=== PATIENT | female | born 1965 | race African-American/Black ===

== ENCOUNTER 2016-12-02 10:42 | Emergency (ER) | payer MEDICARE, OTHER ==
[~2016-12-02] VITALS: Ht 162.6 cm; Wt 63.5 kg
--- NOTE | 2016-12-02 11:32 | PHYS DOC ---
Adult General Chief Complaint Chief Complaint: ALTERED MENTAL STATUS [facility] HPI Patient is a 51 year old presents to the emergency department with complaints of right frontal headache and numbness and tingling to the lips for 3 days. Patient states the last tetanus same symptoms occurred she had an INR that was elevated. She states that she has had no evidence of bleeding, no bleeding from the gums when brushing her teeth, no blood in her stool, no blood in her urine. She does not note that she's had excessive bruising. Patient states she has had no chest pain, no abdominal pain, nausea, vomiting. No diarrhea. Reports she is using Coumadin and she has a history of atrial fib. States her main concern today is her potential elevation of INR based on previous symptoms she is experienced with this. Review of Systems Review of Systems Constitutional: Denies fever or chills [] Eyes: Denies change in visual acuity, redness, or eye pain [] HENT: Denies nasal congestion or sore throat [] Respiratory: Denies cough or shortness of breath [] Cardiovascular: No additional information not addressed in HPI [] GI: Denies abdominal pain, nausea, vomiting, bloody stools or diarrhea [] : Denies dysuria or hematuria [] Musculoskeletal: Denies back pain or joint pain [] Integument: Denies rash or skin lesions [] Neurologic: Headache and tingling of lips. Denies focal weakness or sensory changes. Endocrine: Denies polyuria or polydipsia [] Allergies Allergies Allergies Coded Allergies Type Severity Reaction Last Updated Verified prochlorperazine Allergy Intermediate 12/02/16 Yes Physical Exam Physical Exam Constitutional: Well developed, well nourished, no acute distress, non-toxic appearance. [] HENT: Normocephalic, atraumatic, bilateral external ears normal, oropharynx moist, no oral exudates, nose normal. [] Eyes: PERRLA, EOMI, conjunctiva normal, no discharge. [] Neck: Normal range of motion, no tenderness, supple, no stridor. [] Cardiovascular:Heart rate irregular rhythm, no murmur [] Lungs & Thorax: Bilateral breath sounds clear to auscultation [] Abdomen: Bowel sounds normal, soft, no tenderness, no masses, no pulsatile masses. [] Skin: Warm, dry, no erythema, no rash. No bruising [] Back: No tenderness, no CVA tenderness. [] Extremities: No tenderness, no cyanosis, no clubbing, ROM intact, no edema. [] Neurologic: Alert and oriented X 3, normal motor function, normal sensory function, no focal deficits noted. NIH Stroke score = 0 Psychologic: Affect normal, judgement normal, mood normal. [] Current Patient Data Vital Signs Vital Signs Date Time Temp Pulse Resp B/P (MAP) Pulse Ox O2 Delivery O2 Flow Rate FiO2 12/02/16 11:05 98.4 91 18 111/67 (82) 96 Room Air 98.4 Lab Values Laboratory Tests Test 12/02/16 11:34 White Blood Count 3.7 x10^3/uL (4.0-11.0) L Red Blood Count 3.76 x10^6/uL (3.50-5.40) Hemoglobin 12.3 g/dL (12.0-15.5) Hematocrit 35.4 % (36.0-47.0) L Mean Corpuscular Volume 94 fL (79-100) Mean Corpuscular Hemoglobin 33 pg (25-35) Mean Corpuscular Hemoglobin Concent 35 g/dL (31-37) Red Cell Distribution Width 13.0 % (11.5-14.5) Platelet Count 231 x10^3/uL (140-400) Neutrophils (%) (Auto) 52 % (31-73) Lymphocytes (%) (Auto) 30 % (24-48) Monocytes (%) (Auto) 15 % (0-9) H Eosinophils (%) (Auto) 2 % (0-3) Basophils (%) (Auto) 1 % (0-3) Neutrophils # (Auto) 1.9 x10^3uL (1.8-7.7) Lymphocytes # (Auto) 1.1 x10^3/uL (1.0-4.8) Monocytes # (Auto) 0.6 x10^3/uL (0.0-1.1) Eosinophils # (Auto) 0.1 x10^3/uL (0.0-0.7) Basophils # (Auto) 0.0 x10^3/uL (0.0-0.2) Prothrombin Time 25.2 SEC (11.7-14.0) H Prothrombin Time INR 2.5 (0.8-1.1) H PTT 37 SEC (24-38) Sodium Level 138 mmol/L (136-145) Potassium Level 4.0 mmol/L (3.5-5.1) Chloride Level 103 mmol/L (98-107) Carbon Dioxide Level 26 mmol/L (21-32) Anion Gap 9 (6-14) Blood Urea Nitrogen 18 mg/dL (7-20) Creatinine 0.9 mg/dL (0.6-1.0) Estimated GFR (Cockcroft-Gault) 79.3 BUN/Creatinine Ratio 20 (6-20) Glucose Level 96 mg/dL (70-99) Calcium Level 9.4 mg/dL (8.5-10.1) Total Bilirubin 0.3 mg/dL (0.2-1.0) Aspartate Amino Transferase (AST) 23 U/L (15-37) Alanine Aminotransferase (ALT) 35 U/L (14-59) Alkaline Phosphatase 134 U/L (46-116) H Creatine Kinase 90 U/L (26-192) Creatine Kinase MB (Mass) 0.8 ng/mL (0.0-3.6) Creatine Kinase MB Relative Index 0.9 % (0-4) Troponin I Quantitative < 0.017 ng/mL (0.000-0.055) Total Protein 9.0 g/dL (6.4-8.2) H Albumin 4.1 g/dL (3.4-5.0) Albumin/Globulin Ratio 0.8 (1.0-1.7) L Laboratory Tests 12/02/16 11:34 Laboratory Tests 12/02/16 11:34 EKG EKG EKG reviewed by Dr. Marie at 1155, no stemi, junctional rhythm[] Radiology/Procedures Radiology/Procedures [][facility] [address] [place], [place] [id number] IMAGING REPORT Signed PATIENT: FREDERICK NICOLE ACCOUNT: [id number] : 1965 LOCATION: ER AGE: 51 SEX: F EXAM STATUS: REG ER ORD. PHYSICIAN: MURTAZA STAPLES APRN REASON: Headache, Coumadin PROCEDURE: CT HEAD WO CONTRAST CT head without contrast History: Headache, on Coumadin. Comparison: None. Procedure: Axial images are obtained of the head from the skull base through the vertex without IV contrast. Findings: The ventricles and sulci are normal for the patient's age. No mass-effect, intracranial mass, midline shift, hemorrhage or obvious acute infarction is identified. Basilar cisterns are patent. Bone windows demonstrate no significant calvarial abnormality. The visualized paranasal sinuses appear clear. Mild bilateral periventricular white matter hypodensities likely chronic small vessel ischemic disease. Impression: 1. No acute intracranial process. PQRS Compliance Statement: One or more of the following individualized dose reduction techniques were utilized for this examination: 1. Automated exposure control 2. Adjustment of the mA and/or kV according to patient size 3. Use of iterative reconstruction technique faint DICTATED and SIGNED BY: MAGO CRUZ MD DATE: 12/02/16 1149 CC: NON,STAFF; MURTAZA STAPLES APRN; ELISABETH RIVERS MD ~ Course & Med Decision Making Course & Med Decision Making Reevaluation: Patient's NIH stroke score remained 0. She has no complaints at time of reevaluation. I discussed with her the lab results and her CAT scan results. She is comfortable with the findings she states she is comfortable going home. She does have a follow-up appointment in 2 days with her primary care provider. I did encourage her to continue with plans for this appointment. She was advised that should she develop new symptoms or concerns or her condition worsens than she should report to the emergency department. Pertinent Labs and Imaging studies reviewed. (See chart for details) [] Dragon Disclaimer Dragon Disclaimer This electronic medical record was generated, in whole or in part, using a voice recognition dictation system. Departure Departure Impression: Primary Impression: Feared condition not demonstrated Disposition: 01 HOME, SELF-CARE Condition: STABLE Referrals: ELISABETH RIVERS MD (PCP) Additional Instructions: Your INR was 2.5. Please plan to follow-up with your primary care provider as scheduled in 2 days for further evaluation and monitoring of her Coumadin and INR. Return to the emergency Department for new symptoms or concerns or worsening of condition. MURTAZA STAPLES APRN Dec 02, 2016 11:32
[2016-12-02 11:45] LABS: BASO % 1 % (0-3); EOS % 2 % (0-3); HEMATOCRIT 35.4 % (36.0-47.0); HEMOGLOBIN 12.3 g/dL (12.0-15.5); LYMPH # 1.1 x10^3/uL (1.0-4.8); LYMPH % 30 % (24-48); MEAN CORPUSCULAR HEMOGLOBIN 33 pg (25-35); MEAN CORPUSCULAR HGB CONC 35 g/dL (31-37); MEAN CORPUSCULAR VOLUME 94 fL (79-100); MONO % 15 % (0-9); NEUT % 52 % (31-73); PLATELET COUNT 231 x10^3/uL (140-400); RED BLOOD COUNT 3.76 x10^6/uL (3.50-5.40); WHITE BLOOD COUNT 3.7 x10^3/uL (4.0-11.0)
--- NOTE | 2016-12-02 11:54 | RAD ---
CT head without contrast History: Headache, on Coumadin. Comparison: None. Procedure: Axial images are obtained of the head from the skull base through the vertex without IV contrast. Findings: The ventricles and sulci are normal for the patient's age. No mass-effect, intracranial mass, midline shift, hemorrhage or obvious acute infarction is identified. Basilar cisterns are patent. Bone windows demonstrate no significant calvarial abnormality. The visualized paranasal sinuses appear clear. Mild bilateral periventricular white matter hypodensities likely chronic small vessel ischemic disease. Impression: 1. No acute intracranial process. PQRS Compliance Statement: One or more of the following individualized dose reduction techniques were utilized for this examination: 1. Automated exposure control 2. Adjustment of the mA and/or kV according to patient size 3. Use of iterative reconstruction technique faint
[2016-12-02 11:55] LABS: INR 2.5 (0.8-1.1); PROTHROMBIN TIME PATIENT 25.2 SEC (11.7-14.0)
[2016-12-02 11:56] LABS: CALCIUM 9.4 mg/dL (8.5-10.1); CREATININE 0.9 mg/dL (0.6-1.0); GFR 79.3
[2016-12-02 12:01] LABS: ALBUMIN 4.1 g/dL (3.4-5.0); ALBUMIN/GLOBULIN RATIO 0.8 (1.0-1.7); TOTAL BILIRUBIN 0.3 mg/dL (0.2-1.0)
[2016-12-02 12:15] LABS: CKMB MASS 0.8 ng/mL (0.0-3.6)
[2016-12-02 12:38] VITALS: BP 107/62
--- NOTE | 2016-12-02 14:05 | EKG ---
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
== END 2016-12-02 12:40 | disposition home or self-care (01) ==
LOC: ER 10:42
DX: Z71.1 Person with feared health complaint in whom no diagnosis is made (principal); R51 Headache; R20.0 Anesthesia of skin; Z88.8 Allergy status to other drugs, medicaments and biological substances
CPT/HCPCS: 36415; 70450; 80053; 82553; 84484; 85027; 85610; 85730; 93005; 99285-25

== ENCOUNTER 2017-03-04 22:34 | Emergency (ER) | payer MEDICARE, OTHER ==
[~2017-03-04] VITALS: Ht 162.6 cm; Wt 62.6 kg
[2017-03-04 22:48] VITALS: BP 116/67
[2017-03-04] MEDS ORDERED: CONTRAST GIVEN MC PRN (23:15)
[2017-03-04 23:22] LABS: BILIRUBIN,URINE NEGATIVE (NEG); GLUCOSE,URINE NEGATIVE (NEG); NITRITE,URINE NEGATIVE (NEG); PROTEIN,URINE NEGATIVE (NEG-TRACE); UROBILINOGEN,URINE 0.2 mg/dL (0.2 mg/dL)
[2017-03-04 23:27] LABS: BACTERIA,URINE MODERATE /HPF (0-FEW); RBC,URINE OCC /HPF (0-2)
[2017-03-04 23:28] LABS: SQUAMOUS EPITHELIAL CELL,UR MOD /LPF
[2017-03-04] MEDS ORDERED: IOHEXOL 300 MG/ML 75 ML VIAL IV ONE (23:30)
[2017-03-04] MEDS ORDERED: CYCL10TA2 PO (23:50)
--- NOTE | 2017-03-04 23:51 | PHYS DOC ---
Past Medical History Past Medical History: A-Fib, Hypertension, Other Additional Past Medical Histor: BLOOD CLOTS Past Surgical History: Other Additional Past Surgical Histo: CARDIAC ABLASION, IVC FILTER PLACED AND REMOVED Alcohol Use: Occasionally Drug Use: None Adult General Chief Complaint Chief Complaint: FLANK PAIN HPI HPI Patient is a 51 year old female who presents with complaint of left flank pain. Patient states that she has been having worsening symptoms over the past 2 days. Patient states that she slept on a different bed prior to onset of symptoms and states that she awoke with mild pain in her back. Patient states that it has progressively worsened over the past 2 days. Patient states that the pain worsens with movement. Patient has not taken any medications to help with her symptoms. Patient currently rates her pain as 9 out of 10 with movement. Patient has not had any abdominal pain, lightheadedness, dizziness, chest pain, or shortness of breath associated with her symptoms. Patient states that she has history of atrial fibrillation currently on Coumadin therapy. Patient states her last INR check was 3.5. Patient noted during triage to have urinary frequency, however the patient is currently denying increased frequency on my questioning. Patient has no dysuria and has noticed no blood in her urine. Review of Systems Review of Systems Constitutional: Denies fever or chills [] Eyes: Denies change in visual acuity, redness, or eye pain [] HENT: Denies nasal congestion or sore throat [] Respiratory: Denies cough or shortness of breath [] Cardiovascular: Denies chest pain or edema[] GI: Denies abdominal pain, nausea, vomiting, bloody stools or diarrhea [] : Denies dysuria or hematuria [] Musculoskeletal: Back pain[] Integument: Denies rash or skin lesions [] Neurologic: Denies headache, focal weakness or sensory changes [] Current Medications Current Medications Current Medications Medications (Trade) Dose Ordered Sig/Aster Start Time Stop Time Status Last Admin Dose Admin Acetaminophen (Tylenol) 650 mg 1X ONCE 03/05/17 00:00 03/05/17 00:01 DC 03/04/17 23:55 650 MG Info (Do NOT chart on this entry -- for MONITORING) 1 each PRN DAILY PRN 03/04/17 23:15 03/06/17 23:14 Cancel Iohexol (Omnipaque 300 Mg/ml) 75 ml 1X ONCE 03/04/17 23:30 03/04/17 23:31 Cancel Allergies Allergies Allergies Coded Allergies Type Severity Reaction Last Updated Verified prochlorperazine Allergy Intermediate 12/02/16 Yes Physical Exam Physical Exam Constitutional: Alert, afebrile, appears in moderate discomfort. [] HENT: Normocephalic, atraumatic, bilateral external ears normal, oropharynx moist, no oral exudates, nose normal. [] Eyes: PERRLA, EOMI, conjunctiva normal, no discharge. [] Neck: Normal range of motion, no tenderness, supple, no stridor. [] Cardiovascular: Normal rate, irregular rhythm, no murmur [] Lungs & Thorax: Bilateral breath sounds clear to auscultation [] Abdomen: Bowel sounds normal, soft, no tenderness, no masses, no pulsatile masses. [] Skin: Warm, dry, no erythema, no rash. [] Back: Left lower lumbar paraspinous muscle tenderness to palpation, no CVA tenderness, no flank ecchymosis. [] Extremities: No tenderness, no cyanosis, no clubbing, ROM intact, no edema. [] Neurologic: Alert and oriented X 3, normal motor function, normal sensory function, no focal deficits noted. [] Current Patient Data Vital Signs Vital Signs Date Time Temp Pulse Resp B/P (MAP) Pulse Ox O2 Delivery O2 Flow Rate FiO2 03/04/17 22:48 97.8 85 12 116/67 (83) 100 Room Air 97.8 Lab Values Laboratory Tests Test 03/04/17 22:49 03/04/17 23:43 Urine Collection Type Unknown Urine Color Yellow Urine Clarity Clear Urine pH 6.0 Urine Specific [place] 1.015 Urine Protein Negative mg/dL (NEG-TRACE) Urine Glucose (UA) Negative mg/dL (NEG) Urine Ketones (Stick) Negative mg/dL (NEG) Urine Blood Negative (NEG) Urine Nitrite Negative (NEG) Urine Bilirubin Negative (NEG) Urine Urobilinogen Dipstick 0.2 mg/dL (0.2 mg/dL) Urine Leukocyte Esterase Small (NEG) Urine RBC Occ /HPF (0-2) Urine WBC 1-4 /HPF (0-4) Urine Squamous Epithelial Cells Mod /LPF Urine Bacteria Moderate /HPF (0-FEW) Urine Mucus Slight /LPF Prothrombin Time 25.6 SEC (11.7-14.0) H Prothrombin Time INR 2.5 (0.8-1.1) H EKG EKG Not performed[] Radiology/Procedures Radiology/Procedures Not performed[] Course & Med Decision Making Course & Med Decision Making Pertinent Labs and Imaging studies reviewed. (See chart for details) Patient's symptoms appear consistent with acute myofascial strain of the lower lumbar spine. The patient's UA shows evidence of bacteria but also shows signs of squamous cells, thus I feel that the urine sample is likely contaminated and does not show active signs of infection. The patient will be prescribed Flexeril to take at nighttime to help with muscle pain. Also recommended use of Tylenol as needed for pain. Advised follow-up in 3 days with patient's primary doctor for reevaluation and return to emergency department for any worsening symptoms. Dragon Disclaimer Dragon Disclaimer This electronic medical record was generated, in whole or in part, using a voice recognition dictation system. Departure Departure Impression: Primary Impression: Back pain Additional Impression: Chronic a-fib Disposition: 01 HOME, SELF-CARE Condition: STABLE Referrals: ELISABETH RIVERS MD (PCP) Patient Instructions: Back Pain, Adult Additional Instructions: Follow-up with your primary doctor in 3 days for reevaluation. Return to emergency department for any worsening symptoms. Scripts Cyclobenzaprine Hcl (CYCLOBENZAPRINE HCL) 10 Mg Tablet 1 TAB PO QHS Y for MUSCLE PAIN, #30 TAB Prov: KORTNEY ARIAS MD 03/04/17 Problem Qualifiers Primary Impression: Back pain Back pain location: low back pain Chronicity: acute Back pain laterality: left Sciatica presence: without sciatica Qualified Codes: M54.5 - Low back pain KORTNEY ARIAS MD Mar 04, 2017 23:51
[2017-03-05] MEDS ORDERED: ACETAMINOPHEN 325 MG TABLET. PO ONE
[2017-03-05 00:18] LABS: INR 2.5 (0.8-1.1); PROTHROMBIN TIME PATIENT 25.6 SEC (11.7-14.0)
== END 2017-03-05 00:26 | disposition home or self-care (01) ==
LOC: ER 22:34
DX: M54.9 Dorsalgia, unspecified (principal); I48.2 Chronic atrial fibrillation; I10 Essential (primary) hypertension; Z79.01 Long term (current) use of anticoagulants
CPT/HCPCS: 36415; 81001; 85610; 87086; 99284

== ENCOUNTER 2017-06-08 18:48 | Emergency (ER) | payer MEDICARE, OTHER ==
[2017-06-08 19:18] LABS: HEMOGLOBIN 12.2 g/dL (12.0-15.5); MEAN CORPUSCULAR HEMOGLOBIN 32 pg (25-35); MEAN CORPUSCULAR HGB CONC 34 g/dL (31-37); MEAN CORPUSCULAR VOLUME 94 fL (79-100); PLATELET COUNT 241 x10^3/uL (140-400); RED BLOOD COUNT 3.85 x10^6/uL (3.50-5.40); WHITE BLOOD COUNT 7.4 x10^3/uL (4.0-11.0)
[2017-06-08] MEDS: HYDROcodone/APAP 5/325MG 1 TAB TABLET PO (19:30)
[2017-06-08 19:31] LABS: ANION GAP 14 (6-14); BLOOD UREA NITROGEN 15 mg/dL (7-20); BUN/CREATININE RATIO 15 (6-20); CALCIUM 8.7 mg/dL (8.5-10.1); CARBON DIOXIDE 21 mmol/L (21-32); CHLORIDE 100 mmol/L (98-107); GFR 70.2; GLUCOSE 94 mg/dL (70-99); POTASSIUM 4.1 mmol/L (3.5-5.1); SODIUM 135 mmol/L (136-145)
[2017-06-08 19:36] LABS: ALBUMIN 4.1 g/dL (3.4-5.0); ALK PHOS 114 U/L (46-116); ALT (SGPT) 24 U/L (14-59); AST (SGOT) 18 U/L (15-37); TOTAL BILIRUBIN 0.5 mg/dL (0.2-1.0); TOTAL PROTEIN 8.3 g/dL (6.4-8.2)
[2017-06-08] MEDS ORDERED: CONTRAST GIVEN MC (19:45)
[2017-06-08] MEDS: IOHEXOL 300 MG/ML 100ML VIAL. IV (19:50)
[2017-06-08 20:17] LABS: BILIRUBIN,URINE NEGATIVE (NEG); GLUCOSE,URINE NEGATIVE (NEG); NITRITE,URINE NEGATIVE (NEG); PROTEIN,URINE NEGATIVE (NEG-TRACE)
[2017-06-08 20:28] LABS: BACTERIA,URINE MANY /HPF (0-FEW); RBC,URINE 0 /HPF (0-2); SQUAMOUS EPITHELIAL CELL,UR MANY /LPF
== END 2017-06-08 21:12 | disposition home or self-care (01) ==
LOC: ER 18:48
DX: N39.0 Urinary tract infection, site not specified (principal); L03.314 Cellulitis of groin; I48.91 Unspecified atrial fibrillation; I10 Essential (primary) hypertension; Z88.8 Allergy status to other drugs, medicaments and biological substances
CPT/HCPCS: 36415; 74177; 80053; 81001; 83690; 85027; 99285-25; Q9967

== ENCOUNTER 2017-08-26 12:52 | Emergency (ER) | payer MEDICARE, OTHER ==
[2017-08-26 13:37] LABS: ADD MAN DIFF? NO
[2017-08-26 13:40] LABS: BASO % 1 % (0-3); EOS % 1 % (0-3); HEMATOCRIT 34.5 % (36.0-47.0); HEMOGLOBIN 11.9 g/dL (12.0-15.5); LYMPH # 1.3 x10^3/uL (1.0-4.8); LYMPH % 38 % (24-48); MEAN CORPUSCULAR HEMOGLOBIN 31 pg (25-35); MEAN CORPUSCULAR HGB CONC 35 g/dL (31-37); MEAN CORPUSCULAR VOLUME 91 fL (79-100); MONO # 0.4 x10^3/uL (0.0-1.1); MONO % 10 % (0-9); NEUT # 1.8 x10^3uL (1.8-7.7); NEUT % 50 % (31-73); PLATELET COUNT 211 x10^3/uL (140-400); RED BLOOD COUNT 3.79 x10^6/uL (3.50-5.40); RED CELL DISTRIBUTION WIDTH 13.5 % (11.5-14.5); WHITE BLOOD COUNT 3.5 x10^3/uL (4.0-11.0)
[2017-08-26 13:41] LABS: BILIRUBIN,URINE SMALL (NEG); CLARITY,URINE CLEAR; GLUCOSE,URINE NEGATIVE (NEG); NITRITE,URINE NEGATIVE (NEG); PROTEIN,URINE NEGATIVE (NEG-TRACE)
[2017-08-26 13:45] LABS: COLOR,URINE DK YELLOW
[2017-08-26] MEDS: ONDANSETRON PF 4 MG/2 ML VIAL. IV (13:48)
[2017-08-26] MEDS: IV NORMAL SALINE 1000ML BAG 1,000 ML IV (13:48)
[2017-08-26 13:49] LABS: BACTERIA,URINE MANY /HPF (0-FEW); RBC,URINE RARE /HPF (0-2); SQUAMOUS EPITHELIAL CELL,UR MANY /LPF
[2017-08-26 14:01] LABS: ANION GAP 15 (6-14); BLOOD UREA NITROGEN 10 mg/dL (7-20); BUN/CREATININE RATIO 11 (6-20); CALCIUM 9.3 mg/dL (8.5-10.1); CARBON DIOXIDE 20 mmol/L (21-32); CHLORIDE 103 mmol/L (98-107); CREATININE 0.9 mg/dL (0.6-1.0); GFR 79.3; GLUCOSE 100 mg/dL (70-99); POTASSIUM 4.4 mmol/L (3.5-5.1); SODIUM 138 mmol/L (136-145)
[2017-08-26 14:02] LABS: TROPONINI < 0.017 ng/mL (0.000-0.055)
[2017-08-26 14:06] LABS: ALBUMIN 3.9 g/dL (3.4-5.0); ALBUMIN/GLOBULIN RATIO 0.9 (1.0-1.7); ALK PHOS 118 U/L (46-116); ALT (SGPT) 26 U/L (14-59); AST (SGOT) 22 U/L (15-37); LIPASE 129 U/L (73-393); TOTAL BILIRUBIN 0.5 mg/dL (0.2-1.0); TOTAL PROTEIN 8.4 g/dL (6.4-8.2)
[2017-08-26] MEDS ORDERED: CONTRAST GIVEN MC (14:15)
[2017-08-26] MEDS: IOHEXOL 300 MG/ML 100ML VIAL. IV (14:15)
[2017-08-26 14:22] LABS: LACTIC ACID 1.1 mmol/L (0.4-2.0)
== END 2017-08-26 16:00 | disposition home or self-care (01) ==
LOC: ER 12:52
DX: R10.9 Unspecified abdominal pain (principal); R11.2 Nausea with vomiting, unspecified; R19.7 Diarrhea, unspecified; I10 Essential (primary) hypertension; I48.91 Unspecified atrial fibrillation; Z95.0 Presence of cardiac pacemaker; Z87.891 Personal history of nicotine dependence; Z88.8 Allergy status to other drugs, medicaments and biological substances
CPT/HCPCS: 36415; 74177; 80053; 81001; 83605; 83690; 84484; 85025; 87086; 96361; 96374; 99285-25; J2405; J7030; Q9967

== ENCOUNTER → 2018-05-01 | Outpatient (CLI) | payer MEDICARE, OTHER ==
[2017-08-26 15:38] VITALS: BP 119/59
[~2018-05-01] MED LIST: CONTRAST GIVEN. MC PRN; CYCL10TA2 PO; HYDR-3164 PO; IOHEXOL 300 MG/ML 100ML VIAL. IV ONE; LEVO500T59 PO; ONDA4TAB10 SL
--- NOTE | 2018-05-01 13:50 | RAD ---
CT pulmonary angiogram with intravenous contrast History: Shortness air for 3 weeks. Left breast cancer Comparison: None. Technique: CT angiogram of the chest with attention to the pulmonary arteries was performed after the administration of intravenous contrast, mL . Axial 2-D reconstructions were obtained. Coronal 3-D MIPS were obtained of the chest. Exposure: One or more of the following individualized dose reduction techniques were utilized for this examination: 1. Automated exposure control 2. Adjustment of the mA and/or kV according to patient size 3. Use of iterative reconstruction technique Findings: Pulmonary arteries are adequately opacified. There is no evidence of pulmonary embolism. Trachea and mainstem bronchi appear patent. Visualized thyroid appears symmetric. No acute airspace disease is identified. No pneumothorax or pleural effusion is seen. No mediastinal lymphadenopathy is seen. Thoracic aorta has normal caliber. 3-lead AICD is seen. Cardiac chambers are enlarged. There is preferential opacification of the right cardiac chambers and pulmonary arteries, which can be seen with cardiac dysfunction. There is reflux of contrast into the IVC. Impression: 1. No evidence of pulmonary embolism. 2. No acute airspace disease identified. Electronically signed by: Bob Donahue MD (05/01/2018 1:47 PM) [place] [id number]
== END | disposition home or self-care (01) ==
LOC: CT 12:54
PROVIDERS: ATTEND Internal Medicine Hematology & Oncology
DX: I51.7 Cardiomegaly (principal); Z85.3 Personal history of malignant neoplasm of breast
CPT/HCPCS: 71275; Q9967

== ENCOUNTER 2018-10-18 01:35 | Inpatient (IN) | payer MEDICARE, MEDICAID ==
[~2018-10-18] VITALS: Ht 162.6 cm; Wt 56.8 kg
[~2018-10-18 01:35] MED LIST changes: -CONTRAST GIVEN. MC PRN; -IOHEXOL 300 MG/ML 100ML VIAL. IV ONE
--- NOTE | 2018-10-18 03:01 | PHYS DOC ---
Past Medical History Past Medical History: A-Fib, Hypertension, NV, Other Additional Past Medical Histor: BLOOD CLOTS Past Surgical History: Pacemaker, Other Additional Past Surgical Histo: CARDIAC ABLAtION, IVC FILTER PLACED AND REMOVED Alcohol Use: Occasionally Drug Use: None Adult General Chief Complaint Chief Complaint: ABDOMINAL PAIN HPI HPI Patient is a 52 year old F who presents with burning epigastric pain that has been present for the last hour. She says it feels somewhat her prior NV. She denies any radiation but says the pain is worse with movement. She states that she has no shortness of breath. She has a history of a NV in the past and currently has a defibrillator. Per her [facility] chart review from her cell phone she has a history of paroxysmal VTach, bilateral DVT, and CHF II. I cannot tell whether she has any coronary disease based on my chart review that she gave me. We have sent for records they are pending. Her current medications include Edoxiban, carvedilol, lisinopril, lasix, and spironolactone. Review of Systems Review of Systems Constitutional: Denies fever or chills [] Eyes: Denies change in visual acuity, redness, or eye pain [] HENT: Denies nasal congestion or sore throat [] Respiratory: Denies cough or shortness of breath [] Cardiovascular: No additional information not addressed in HPI [] GI: Denies abdominal pain, nausea, vomiting, bloody stools or diarrhea [] : Denies dysuria or hematuria [] Musculoskeletal: Denies back pain or joint pain [] Integument: Denies rash or skin lesions [] Neurologic: Denies headache, focal weakness or sensory changes [] Endocrine: Denies polyuria or polydipsia [] All other systems were reviewed and found to be within normal limits, except as documented in this note. Current Medications Current Medications Current Medications Medications (Trade) Dose Ordered Sig/Aster Start Time Stop Time Status Last Admin Dose Admin Aspirin (Children'S Aspirin) 324 mg 1X ONCE 10/18/18 03:15 10/18/18 03:16 DC 10/18/18 03:37 324 MG Multi-Ingredient Mouthwash/Gargle (Gi Cocktail) 20 ml 1X ONCE 10/18/18 03:15 10/18/18 03:16 DC 10/18/18 03:37 20 ML Allergies Allergies Allergies Coded Allergies Type Severity Reaction Last Updated Verified prochlorperazine Allergy Intermediate 12/02/16 Yes Physical Exam Physical Exam Constitutional: Well developed, well nourished, no acute distress, non-toxic appearance. [] HENT: Normocephalic, atraumatic, bilateral external ears normal, oropharynx moist, no oral exudates, nose normal. [] Eyes: PERRLA, EOMI, conjunctiva normal, no discharge. [] Neck: Normal range of motion, no tenderness, supple, no stridor. [] Cardiovascular:Heart rate regular rhythm, 3/6 systolic murmur [] Lungs & Thorax: Bilateral breath sounds clear to auscultation [] Abdomen: Bowel sounds normal, soft, mild epigastric tenderness, no masses, no pulsatile masses. [] Skin: Warm, dry, no erythema, no rash. [] Back: No tenderness, no CVA tenderness. [] Extremities: No tenderness, no cyanosis, no clubbing, ROM intact, no edema. [] Neurologic: Alert and oriented X 3, normal motor function, normal sensory func tion, no focal deficits noted. [] Psychologic: Affect normal, judgement normal, mood normal. [] Current Patient Data Vital Signs Vital Signs Date Time Temp Pulse Resp B/P (MAP) Pulse Ox O2 Delivery O2 Flow Rate FiO2 10/18/18 04:39 61 130/62 (84) Room Air 10/18/18 04:09 100 10/18/18 02:16 97.7 16 97.7 Lab Values Laboratory Tests Test 10/18/18 03:20 10/18/18 04:21 White Blood Count 3.9 x10^3/uL (4.0-11.0) L Red Blood Count 3.63 x10^6/uL (3.50-5.40) Hemoglobin 12.3 g/dL (12.0-15.5) Hematocrit 35.5 % (36.0-47.0) L Mean Corpuscular Volume 98 fL (79-100) Mean Corpuscular Hemoglobin 34 pg (25-35) Mean Corpuscular Hemoglobin Concent 35 g/dL (31-37) Red Cell Distribution Width 13.0 % (11.5-14.5) Platelet Count 253 x10^3/uL (140-400) Neutrophils (%) (Auto) 46 % (31-73) Lymphocytes (%) (Auto) 38 % (24-48) Monocytes (%) (Auto) 13 % (0-9) H Eosinophils (%) (Auto) 3 % (0-3) Basophils (%) (Auto) 1 % (0-3) Neutrophils # (Auto) 1.8 x10^3uL (1.8-7.7) Lymphocytes # (Auto) 1.5 x10^3/uL (1.0-4.8) Monocytes # (Auto) 0.5 x10^3/uL (0.0-1.1) Eosinophils # (Auto) 0.1 x10^3/uL (0.0-0.7) Basophils # (Auto) 0.0 x10^3/uL (0.0-0.2) Prothrombin Time 21.0 SEC (11.7-14.0) H Prothrombin Time INR 1.8 (0.8-1.1) H Sodium Level 135 mmol/L (136-145) L Potassium Level 4.2 mmol/L (3.5-5.1) Chloride Level 98 mmol/L (98-107) Carbon Dioxide Level 24 mmol/L (21-32) Anion Gap 13 (6-14) Blood Urea Nitrogen 30 mg/dL (7-20) H Creatinine 1.1 mg/dL (0.6-1.0) H Estimated GFR (Cockcroft-Gault) 62.6 BUN/Creatinine Ratio 27 (6-20) H Glucose Level 99 mg/dL (70-99) Calcium Level 9.4 mg/dL (8.5-10.1) Magnesium Level 2.0 mg/dL (1.8-2.4) Total Bilirubin 0.3 mg/dL (0.2-1.0) Aspartate Amino Transferase (AST) 23 U/L (15-37) Alanine Aminotransferase (ALT) 46 U/L (14-59) Alkaline Phosphatase 126 U/L (46-116) H Troponin I Quantitative 0.054 ng/mL (0.000-0.055) UE-Fxb-F-Type Natriuretic Peptide 2460 pg/mL (0-124) H Total Protein 8.2 g/dL (6.4-8.2) Albumin 4.0 g/dL (3.4-5.0) Albumin/Globulin Ratio 1.0 (1.0-1.7) Lipase 172 U/L (73-393) Laboratory Tests 10/18/18 03:20 Laboratory Tests 10/18/18 04:21 EKG EKG Paced rhythm underlying A. fib most likely no obvious ischemia interpreted by me the time of encounter Radiology/Procedures Radiology/Procedures [] Impressions: Mitral patient chest x-ray negative acute no obvious pathology Course & Med Decision Making Course & Med Decision Making Pertinent Labs and Imaging studies reviewed. (See chart for details) []Spelled 52 old female with a known history of congestive heart failure the etiology of this is unclear at this time she does not know whether she's ever had a cardiac catheter she says this pain feels similar to her prior heart attack again the details of this are unclear I have asked for records to be sent from so we can A more complete picture of her history Pressures in the 90s if she does have significant CHF that could cause a defibrillator perhaps that is her baseline. On reevaluation at 5:30 in the chest pain had gone away. Troponin is borderline 0.054 again that could be CHF related to have spoken with Dr. gonzales at 5:40 AM we will admit to his service for serial troponins cardiology consultation and further management as needed. At this point time does not really sound like a PE . Patient is already anticoagulated anyway Does not sound like a dissection the abdomen on reexamination is benign Dragon Disclaimer Dragon Disclaimer This electronic medical record was generated, in whole or in part, using a voice recognition dictation system. Departure Departure Impression: Primary Impression: Chest pain Disposition: ADMITTED INPATIENT Admitting Physician: Keily Gonzales Condition: STABLE Referrals: ELISABETH RIVERS MD (PCP) MARCUS RAWLS MD October 18, 2018 03:01
[2018-10-18] MEDS ORDERED: LIDO:MAALOX 1:1 20 ML SINGLE DOSE. SWSW ONE (03:15)
[2018-10-18] MEDS ORDERED: ASPIRIN CHEWABLE 81 MG TABLET. PO ONE (03:15)
[2018-10-18 03:33] LABS: BASO % 1 % (0-3); EOS # 0.1 x10^3/uL (0.0-0.7); EOS % 3 % (0-3); HEMATOCRIT 35.5 % (36.0-47.0); HEMOGLOBIN 12.3 g/dL (12.0-15.5); LYMPH # 1.5 x10^3/uL (1.0-4.8); LYMPH % 38 % (24-48); MEAN CORPUSCULAR HEMOGLOBIN 34 pg (25-35); MEAN CORPUSCULAR HGB CONC 35 g/dL (31-37); MEAN CORPUSCULAR VOLUME 98 fL (79-100); MONO # 0.5 x10^3/uL (0.0-1.1); MONO % 13 % (0-9); NEUT # 1.8 x10^3uL (1.8-7.7); NEUT % 46 % (31-73); PLATELET COUNT 253 x10^3/uL (140-400); RED BLOOD COUNT 3.63 x10^6/uL (3.50-5.40); WHITE BLOOD COUNT 3.9 x10^3/uL (4.0-11.0)
[2018-10-18 05:02] LABS: CALCIUM 9.4 mg/dL (8.5-10.1); CREATININE 1.1 mg/dL (0.6-1.0); GFR 62.6; POTASSIUM 4.2 mmol/L (3.5-5.1)
[2018-10-18 05:08] LABS: TOTAL BILIRUBIN 0.3 mg/dL (0.2-1.0); TOTAL PROTEIN 8.2 g/dL (6.4-8.2)
[2018-10-18 06:28] VITALS: BP 98/60
--- NOTE | 2018-10-18 07:44 | RAD ---
EXAM: Chest, single view. HISTORY: Chest pain. COMPARISON: 05/01/2018 FINDINGS: A frontal view of the chest obtained. The lung apices are excluded from the [id number]. There is no infiltrate, pleural effusion or pneumothorax. There is a cardiac pacemaker defibrillator in expected position. IMPRESSION: 1. No acute pulmonary finding. 2. Exclusion of the lung apices from the [id number]. Electronically signed by: Lilly Sarmiento MD (10/18/2018 7:41 AM) [facility]
[2018-10-18] MEDS ORDERED: POTA10TA12 PO (08:01)
[2018-10-18] MEDS ORDERED: CALC600T23 PO (08:01)
[2018-10-18] MEDS ORDERED: EXEM25TA2 PO (08:01)
[2018-10-18] MEDS ORDERED: MAGN400T3 PO (08:01)
[2018-10-18] MEDS ORDERED: CARV6.2511 PO (08:01)
[2018-10-18] MEDS ORDERED: MEXI200C PO (08:01)
[2018-10-18] MEDS ORDERED: LISI2.5T PO (08:01)
[2018-10-18] MEDS ORDERED: FURO20TA3 PO (08:01)
[2018-10-18] MEDS ORDERED: ASCO500C9 PO (08:01)
[2018-10-18] MEDS ORDERED: EDOX60TA PO (08:01)
[2018-10-18] MEDS ORDERED: RANI150T2 PO (08:01)
[2018-10-18] MEDS ORDERED: FERR325T14 PO (08:01)
[2018-10-18] MEDS ORDERED: SPIR50TA4 PO (08:01)
[2018-10-18] MEDS ORDERED: ALLO100T PO (08:01)
--- NOTE | 2018-10-18 08:47 | PDOC1 ---
History and Physical Date of Admission Date of Admission DATE: 10/18/18 TIME: 08:45 Identification/Chief Complaint Chief Complaint Chest pain Source Source: Patient History of Present Illness History of Present Illness 52 old female w/ PMHx congestive heart failure s/p AICD, afib, HTN, active breast cancer who p/w chest pain that awoke her this morning. She says this pain feels similar to her prior heart attack again the details of this are unclear, and she does not have any more information. I have asked for records to be sent from . She allows me bedside to have access to her "MyChart". It appears in September she had a GXT that was discontinued early due to shortness of breath and chest discomfort. She states she did not know this result and did not follow up with cardiology yet. She was recently treated for a UTI, however her urine culture in her mychart had NGTD. On further review she describes a separate chest pain on the lateral aspect of her AICD, describes it as though she is laying on it and feels it is "digging" at her sharply, she does not lay on her left side, though. BP was in the 90s. On reevaluation chest pain had gone away, though comes back if she moves too quickly. Some associated nausea. Troponin is borderline 0.054. BNP 2460. CXR does not contain the full lung pool, shows AICD, no obvious infiltrates or effusions. EKG - Paced rhythm underlying A. fib most likely no obvious ischemia interpreted by me the time of encounter Past Medical History Cardiovascular: AFIB, HTN Pulmonary: No pertinent hx GI: No pertinent hx Heme/Onc: Cancer (Breast) Hepatobiliary: No pertinent hx Psych: No pertinent hx Rheumatologic: No pertinent hx Infectious disease: No pertinent hx ENT: No pertinent hx Renal/: No pertinent hx Endocrine: No pertinent hx Dermatology: No pertinent hx Past Surgical History Past Surgical History: Other (AICD) Family History Family History: Coronary Artery Disease Social History Smoke: No ALCOHOL: none Drugs: None Current Medications Current Medications Current Medications Aspirin (Children'S Aspirin) 324 mg 1X ONCE PO Last administered on 10/18/18at 03:37; Start 10/18/18 at 03:15; Stop 10/18/18 at 03:16; Status DC Multi-Ingredient Mouthwash/Gargle (Gi Cocktail) 20 ml 1X ONCE SWSW Last administered on 10/18/18at 03:37; Start 10/18/18 at 03:15; Stop 10/18/18 at 03:16; Status DC Active Scripts Active Reported Magnesium Oxide 400 Mg Tablet 500 Mg PO DAILY Allopurinol 100 Mg Tablet 100 Mg PO DAILY Mexiletine Hcl 200 Mg Capsule 200 Mg PO TID Ranitidine Hcl 150 Mg Tablet 150 Mg PO BID Carvedilol (Carvedilol) 6.25 Mg Tablet 6.25 Mg PO BIDWMEALS Exemestane 25 Mg Tablet 25 Mg PO DAILY Potassium Chloride 10 Meq Tab.sr.24h 10 Meq PO BID66 Spironolactone 50 Mg Tablet 50 Mg PO DAILY Furosemide 20 Mg Tablet 20 Mg PO BID Vitamin C (Ascorbic Acid) 500 Mg Capsule 500 Mg PO DAILY Savaysa (Edoxaban Tosylate) 60 Mg Tablet 60 Mg PO DAILY Lisinopril 2.5 Mg Tablet 2.5 Mg PO DAILY Calcium Carbonate 600 Mg Tablet 600 Mg PO BID Ferrous Sulfate 325 Mg Tablet 325 Mg PO DAILY Allergies Allergies: Coded Allergies: prochlorperazine (Verified Allergy, Intermediate, 12/02/16) ROS General: YES: Fatigue, Malaise; No: Chills, Night Sweats, Appetite, Other PSYCHOLOGICAL ROS: No: Anxiety, Behavioral Disorder, Concentration difficultie, Decreased libido, Depression, Disorientation, Hallucinations, Hostility, Irritablity, Memory difficulties, Mood Swings, Obsessive thoughts, Physical abuse, Sexual abuse, Sleep disturbances, Suicidal ideation, Other Eyes: No Blurry vision, No Decreased vision, No Double vision, No Dry eyes, No Excessive tearing, No Eye Pain, No Itchy Eyes, No Loss of vision, No Photophobi a, No Scotomata, No Uses contacts, No Uses glasses, No Other HEENT: No: Heacaches, Visual Changes, Hearing change, Nasal congestion, Nasal discharge, Oral lesions, Sinus pain, Sore Throat, Epistaxis, Sneezing, Snoring, Tinnitus, Vertigo, Vocal changes, Other ALLERGY AND IMMUNOLOGY: No: Hives, Insect Bite Sensitivity, Itchy/Watery Eyes, Nasal Congestion, Post Nasal Drip, Seasonal Allergies, Other Hematological and Lymphatic: No: Bleeding Problems, Blood Clots, Blood Transfusions, Brusing, Night Sweats, Pallor, Swollen Lymph Nodes, Other ENDOCRINE: No: Breast Changes, Galactorrhea, Hair Pattern Changes, Hot Flashes, Malaise/lethargy, Mood Swings, Palpitations, Polydipsia/polyuria, Skin Changes, Temperature Intolerance, Unexpected Weight Changes, Other Breast: No New/Changing Breast Lumps, No Nipple changes, No Nipple discharge, No Other Respiratory: No: Cough, Hemoptysis, Orthopnea, Pleuritic Pain, Shortness of breath, SOB with excertion, Sputum Changes, Stridor, Tachypnea, Wheezing, Other Cardiovascular: yes Chest Pain, yes Palpitations; No Orthopnea, No Paroxysmal Noc. Dyspnea, No Edema, No Lt Headedness, No Other Gastrointestinal: No Nausea, No Vomiting, No Abdominal Pain, No Diarrhea, No Constipation, No Melena, No Hematochezia, No Other Genitourinary: No Dysuria, No Frequency, No Incontinence, No Hematuria, No Retention, No Discharge, No Urgency, No Pain, No Flank Pain, No Other, No , No , No , No , No , No , No Musculoskeletal: No Gait Disturbance, No Joint Pain, No Joint Stiffness, No Joint Swelling, No Muscle Pain, No Muscular Weakness, No Pain In:, No Swelling In:, No Other Neurological: No Behavorial Changes, No Bowel/Bladder ControlChng, No Confusion, No Dizziness, No Gait Disturbance, No Headaches, No Impaired Coord/balance, No Memory Loss, No Numbness/Tingling, No Seizures, No Speech Problems, No Tremors, No Visual Changes, No Weakness, No Other Skin: No Dry Skin, No Eczema, No Hair Changes, No Lumps, No Mole Changes, No Mottling, No Nail Changes, No Pruritus, No Rash, No Skin Lesion Changes, No Other, No Acne Physical Exam General: Alert, Oriented X3, Cooperative, No acute distress HEENT: Atraumatic, PERRLA, EOMI, Mucous membr. moist/pink Lungs: Clear to auscultation, Normal air movement Heart: S1S2, RRR, no gallops, no murmurs, other (Pacer in upper left chest wall appears normal) Abdomen: Normal bowel sounds, Soft, No tenderness, No hepatosplenomegaly, No masses Extremities: No clubbing, No cyanosis, No edema, Normal pulses, No tende rness/swelling Skin: No rashes, No breakdown, No significant lesion Neuro: Normal gait, Normal speech, Strength at / X4 ext, Normal tone, Sensation intact, Cranial nerves 3-12 NL, Reflexes 2+ Psych/Mental Status: Mental status NL, Mood NL Vitals Vitals Vital Signs Date Time Temp Pulse Resp B/P (MAP) Pulse Ox O2 Delivery O2 Flow Rate FiO2 10/18/18 06:28 97.7 76 17 98/60 (73) 99 Room Air 97.7 Labs Labs Laboratory Tests Test 10/18/18 03:20 10/18/18 04:21 White Blood Count 3.9 x10^3/uL (4.0-11.0) Red Blood Count 3.63 x10^6/uL (3.50-5.40) Hemoglobin 12.3 g/dL (12.0-15.5) Hematocrit 35.5 % (36.0-47.0) Mean Corpuscular Volume 98 fL (79-100) Mean Corpuscular Hemoglobin 34 pg (25-35) Mean Corpuscular Hemoglobin Concent 35 g/dL (31-37) Red Cell Distribution Width 13.0 % (11.5-14.5) Platelet Count 253 x10^3/uL (140-400) Neutrophils (%) (Auto) 46 % (31-73) Lymphocytes (%) (Auto) 38 % (24-48) Monocytes (%) (Auto) 13 % (0-9) Eosinophils (%) (Auto) 3 % (0-3) Basophils (%) (Auto) 1 % (0-3) Neutrophils # (Auto) 1.8 x10^3uL (1.8-7.7) Lymphocytes # (Auto) 1.5 x10^3/uL (1.0-4.8) Monocytes # (Auto) 0.5 x10^3/uL (0.0-1.1) Eosinophils # (Auto) 0.1 x10^3/uL (0.0-0.7) Basophils # (Auto) 0.0 x10^3/uL (0.0-0.2) Prothrombin Time 21.0 SEC (11.7-14.0) Prothromb Time International Ratio 1.8 (0.8-1.1) Sodium Level 135 mmol/L (136-145) Potassium Level 4.2 mmol/L (3.5-5.1) Chloride Level 98 mmol/L (98-107) Carbon Dioxide Level 24 mmol/L (21-32) Anion Gap 13 (6-14) Blood Urea Nitrogen 30 mg/dL (7-20) Creatinine 1.1 mg/dL (0.6-1.0) Estimated GFR (Cockcroft-Gault) 62.6 BUN/Creatinine Ratio 27 (6-20) Glucose Level 99 mg/dL (70-99) Calcium Level 9.4 mg/dL (8.5-10.1) Magnesium Level 2.0 mg/dL (1.8-2.4) Total Bilirubin 0.3 mg/dL (0.2-1.0) Aspartate Amino Transf (AST/SGOT) 23 U/L (15-37) Alanine Aminotransferase (ALT/SGPT) 46 U/L (14-59) Alkaline Phosphatase 126 U/L (46-116) Troponin I Quantitative 0.054 ng/mL (0.000-0.055) GL-Orc-X-Type Natriuretic Peptide 2460 pg/mL (0-124) Total Protein 8.2 g/dL (6.4-8.2) Albumin 4.0 g/dL (3.4-5.0) Albumin/Globulin Ratio 1.0 (1.0-1.7) Lipase 172 U/L (73-393) Laboratory Tests Test 10/18/18 03:20 10/18/18 04:21 White Blood Count 3.9 x10^3/uL (4.0-11.0) Red Blood Count 3.63 x10^6/uL (3.50-5.40) Hemoglobin 12.3 g/dL (12.0-15.5) Hematocrit 35.5 % (36.0-47.0) Mean Corpuscular Volume 98 fL (79-100) Mean Corpuscular Hemoglobin 34 pg (25-35) Mean Corpuscular Hemoglobin Concent 35 g/dL (31-37) Red Cell Distribution Width 13.0 % (11.5-14.5) Platelet Count 253 x10^3/uL (140-400) Neutrophils (%) (Auto) 46 % (31-73) Lymphocytes (%) (Auto) 38 % (24-48) Monocytes (%) (Auto) 13 % (0-9) Eosinophils (%) (Auto) 3 % (0-3) Basophils (%) (Auto) 1 % (0-3) Neutrophils # (Auto) 1.8 x10^3uL (1.8-7.7) Lymphocytes # (Auto) 1.5 x10^3/uL (1.0-4.8) Monocytes # (Auto) 0.5 x10^3/uL (0.0-1.1) Eosinophils # (Auto) 0.1 x10^3/uL (0.0-0.7) Basophils # (Auto) 0.0 x10^3/uL (0.0-0.2) Prothrombin Time 21.0 SEC (11.7-14.0) Prothromb Time International Ratio 1.8 (0.8-1.1) Sodium Level 135 mmol/L (136-145) Potassium Level 4.2 mmol/L (3.5-5.1) Chloride Level 98 mmol/L (98-107) Carbon Dioxide Level 24 mmol/L (21-32) Anion Gap 13 (6-14) Blood Urea Nitrogen 30 mg/dL (7-20) Creatinine 1.1 mg/dL (0.6-1.0) Estimated GFR (Cockcroft-Gault) 62.6 BUN/Creatinine Ratio 27 (6-20) Glucose Level 99 mg/dL (70-99) Calcium Level 9.4 mg/dL (8.5-10.1) Magnesium Level 2.0 mg/dL (1.8-2.4) Total Bilirubin 0.3 mg/dL (0.2-1.0) Aspartate Amino Transf (AST/SGOT) 23 U/L (15-37) Alanine Aminotransferase (ALT/SGPT) 46 U/L (14-59) Alkaline Phosphatase 126 U/L (46-116) Troponin I Quantitative 0.054 ng/mL (0.000-0.055) NJ-Ykc-E-Type Natriuretic Peptide 2460 pg/mL (0-124) Total Protein 8.2 g/dL (6.4-8.2) Albumin 4.0 g/dL (3.4-5.0) Albumin/Globulin Ratio 1.0 (1.0-1.7) Lipase 172 U/L (73-393) Images Images CXR - no obvious pathology VTE Prophylaxis Ordered VTE Prophylaxis Devices: No VTE Pharmacological Prophylaxi: Yes Assessment/Plan Assessment/Plan A/P: Chest pain - seems to be pacer site pain and intermittent pain. She did not comp lete her stress test and is very high risk with her active cancer, will trend troponins, await cardiology evaluation. Unlikely a PE or dissection, already on NOAC Congestive heart failure s/p AICD - unknown ejection fraction, she seems in mild exacerbation with her shortness of breath and chest pain, will diurese a bit Afib - on NOAC, mexilitine HTN - monitor BP as it is low. Coreg as tolerated Active breast cancer - on exemestane, will continue Leukopenia - mild, possibly 2/2 cancer or variant FEN - cardiac diet PPX - Eliquis FULL CODE Inpatient for high risk chest pain, mild CHF exacerbation ADAL RAINEY MD October 18, 2018 08:47
--- NOTE | 2018-10-18 10:02 | EKG ---
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
[2018-10-18 11:00] VITALS: BP 94/50
[2018-10-18] MEDS: FERROUS SULFATE 325 MG TABLET. PO SCH (13:45)
[2018-10-18] MEDS: SPIRONOLACTONE 25 MG TABLET PO SCH (13:45)
[2018-10-18] MEDS: MAGNESIUM OXIDE 400 MG TABLET PO SCH (13:45)
[2018-10-18] MEDS: ASCORBIC ACID 500 MG TABLET PO SCH (13:45)
[2018-10-18] MEDS: ALLOPURINOL 100 MG TABLET. PO SCH (13:45)
[2018-10-18] MEDS: FUROSEMIDE 20 MG TABLET PO SCH (13:46)
[2018-10-18] MEDS: LISINOPRIL 5 MG TABLET. PO SCH (13:46)
[2018-10-18] MEDS: MEXILETINE HCL 200 MG CAPSULE PO SCH ×2 (13:50→21:01)
[2018-10-18 15:00] VITALS: BP 103/63
[2018-10-18] MEDS: ANTI-COAG MONITOR BY PHARMACY. MC PRN (16:51)
--- NOTE | 2018-10-18 17:43 | PDOC2 ---
CONSULT Date of Consult Date of Consult DATE: 10/18/18 TIME: 17:37 Reason for Consult Reason for Consult: Epigastric and chest discomfort Referring Physician Referring Physician: Dr. Beaver Identification/Chief Complaint Chief Complaint Epigastric and chest discomfort. Source Source: Chart review, Patient History of Present Illness Reason for Visit: The patient is a 52-year-old female who was admitted through the emergency room for episodes of epigastric and chest discomfort. She states her discomfort started approximately 12 hours prior to admission. She has extensive cardiac history including previous AR, and AICD, atrial fibrillation, and a possible cardiac ablation. She also has a history of hypertension and breast cancer. Initial troponins were minimally elevated at 0.054. BNP however was 2460. The patient is feeling better at this time. Her chest discomfort has largely resolved. Past Medical History Cardiovascular: AFIB, CAD, HTN, AR, Other (AICD) Pulmonary: No pertinent hx GI: No pertinent hx Heme/Onc: Cancer (Breast) Hepatobiliary: No pertinent hx Psych: No pertinent hx Rheumatologic: No pertinent hx Infectious disease: No pertinent hx ENT: No pertinent hx Renal/: No pertinent hx Endocrine: No pertinent hx Dermatology: No pertinent hx Past Surgical History Past Surgical History: Other (AICD and possible cardiac ablation.) Family History Family History: Coronary Artery Disease Social History No ALCOHOL: none Drugs: None Current Medications Current Medications Current Medications Aspirin (Children'S Aspirin) 324 mg 1X ONCE PO Last administered on 10/18/18at 03:37; Start 10/18/18 at 03:15; Stop 10/18/18 at 03:16; Status DC Multi-Ingredient Mouthwash/Gargle (Gi Cocktail) 20 ml 1X ONCE SWSW Last administered on 10/18/18at 03:37; Start 10/18/18 at 03:15; Stop 10/18/18 at 03:16; Status DC Allopurinol (Zyloprim) 100 mg DAILY PO Last administered on 10/18/18at 13:45; Start 10/18/18 at 13:00 Carvedilol (Coreg) 6.25 mg BIDWMEALS PO ; Start 10/18/18 at 17:00 Ferrous Sulfate (Feosol) 325 mg DAILY08 PO Last administered on 10/18/18at 13:45; Start 10/18/18 at 13:00 Furosemide (Lasix) 20 mg BID92 PO Last administered on 10/18/18 13:46; Start 10/18/18 at 14:00 Mexiletine HCl (Mexitil) 200 mg TID PO Last administered on 10/18/18 13:50; Start 10/18/18 at 14:00 Potassium Chloride (Klor-Con) 10 meq BID66 PO ; Start 10/18/18 at 18:00 Ascorbic Acid (Vitamin C) 500 mg DAILY PO Last administered on 10/18/18 13:45; Start 10/18/18 at 13:00 Calcium Carbonate/ Glycine (Oscal) 500 mg BIDWMEALS PO ; Start 10/18/18 at 17:00 Apixaban (Eliquis) 5 mg BID PO ; Start 10/18/18 at 21:00 Non-Formulary Medication (Exemestane ) 25 mg DAILY PO ; Start 10/19/18 at 09:00; Status UNV Lisinopril (Prinivil) 2.5 mg DAILY PO Last administered on 10/18/18 13:46; Start 10/18/18 at 13:00 Magnesium Oxide (Magnesium Oxide) 400 mg DAILY PO Last administered on 10/18/18 13:45; Start 10/18/18 at 13:00 Famotidine (Pepcid) 20 mg BID PO ; Start 10/18/18 at 21:00 Spironolactone (Aldactone) 50 mg DAILY PO Last administered on 10/18/18 13:45; Start 10/18/18 at 13:00 Info (Anti-Coagulation Monitoring By Pharmacy) 1 each PRN DAILY PRN MC SEE COMMENTS Last administered on 10/18/18at 16:51; Start 10/18/18 at 12:00 Active Scripts Active Reported Magnesium Oxide 400 Mg Tablet 500 Mg PO DAILY Allopurinol 100 Mg Tablet 100 Mg PO DAILY Mexiletine Hcl 200 Mg Capsule 200 Mg PO TID Ranitidine Hcl 150 Mg Tablet 150 Mg PO BID Carvedilol (Carvedilol) 6.25 Mg Tablet 6.25 Mg PO BIDWMEALS Exemestane 25 Mg Tablet 25 Mg PO DAILY Potassium Chloride 10 Meq Tab.sr.24h 10 Meq PO BID66 Spironolactone 50 Mg Tablet 50 Mg PO DAILY Furosemide 20 Mg Tablet 20 Mg PO BID Vitamin C (Ascorbic Acid) 500 Mg Capsule 500 Mg PO DAILY Savaysa (Edoxaban Tosylate) 60 Mg Tablet 60 Mg PO DAILY Lisinopril 2.5 Mg Tablet 2.5 Mg PO DAILY Calcium Carbonate 600 Mg Tablet 600 Mg PO BID Ferrous Sulfate 325 Mg Tablet 325 Mg PO DAILY Allergies Allergies: Coded Allergies: prochlorperazine (Verified Allergy, Intermediate, 12/02/16) ROS General: YES: Fatigue Cardiovascular: yes Chest Pain Gastrointestinal: Yes Abdominal Pain Physical Exam General: mild distress HEENT: Atraumatic Lungs: Clear to auscultation Heart: Regular rate Abdomen: Normal bowel sounds Vitals VITALS Vital Signs Date Time Temp Pulse Resp B/P (MAP) Pulse Ox O2 Delivery O2 Flow Rate FiO2 10/18/18 15:00 97.8 79 16 103/63 (76) 100 Room Air 97.8 Labs Labs Laboratory Tests Test 10/18/18 03:20 10/18/18 04:21 10/18/18 08:55 10/18/18 11:30 White Blood Count 3.9 x10^3/uL (4.0-11.0) Red Blood Count 3.63 x10^6/uL (3.50-5.40) Hemoglobin 12.3 g/dL (12.0-15.5) Hematocrit 35.5 % (36.0-47.0) Mean Corpuscular Volume 98 fL (79-100) Mean Corpuscular Hemoglobin 34 pg (25-35) Mean Corpuscular Hemoglobin Concent 35 g/dL (31-37) Red Cell Distribution Width 13.0 % (11.5-14.5) Platelet Count 253 x10^3/uL (140-400) Neutrophils (%) (Auto) 46 % (31-73) Lymphocytes (%) (Auto) 38 % (24-48) Monocytes (%) (Auto) 13 % (0-9) Eosinophils (%) (Auto) 3 % (0-3) Basophils (%) (Auto) 1 % (0-3) Neutrophils # (Auto) 1.8 x10^3uL (1.8-7.7) Lymphocytes # (Auto) 1.5 x10^3/uL (1.0-4.8) Monocytes # (Auto) 0.5 x10^3/uL (0.0-1.1) Eosinophils # (Auto) 0.1 x10^3/uL (0.0-0.7) Basophils # (Auto) 0.0 x10^3/uL (0.0-0.2) Prothrombin Time 21.0 SEC (11.7-14.0) Prothromb Time International Ratio 1.8 (0.8-1.1) Sodium Level 135 mmol/L (136-145) Potassium Level 4.2 mmol/L (3.5-5.1) Chloride Level 98 mmol/L (98-107) Carbon Dioxide Level 24 mmol/L (21-32) Anion Gap 13 (6-14) Blood Urea Nitrogen 30 mg/dL (7-20) Creatinine 1.1 mg/dL (0.6-1.0) Estimated GFR (Cockcroft-Gault) 62.6 BUN/Creatinine Ratio 27 (6-20) Glucose Level 99 mg/dL (70-99) Calcium Level 9.4 mg/dL (8.5-10.1) Magnesium Level 2.0 mg/dL (1.8-2.4) Total Bilirubin 0.3 mg/dL (0.2-1.0) Aspartate Amino Transf (AST/SGOT) 23 U/L (15-37) Alanine Aminotransferase (ALT/SGPT) 46 U/L (14-59) Alkaline Phosphatase 126 U/L (46-116) Troponin I Quantitative 0.054 ng/mL (0.000-0.055) 0.053 ng/mL (0.000-0.055) 0.044 ng/mL (0.000-0.055) CJ-Maa-E-Type Natriuretic Peptide 2460 pg/mL (0-124) Total Protein 8.2 g/dL (6.4-8.2) Albumin 4.0 g/dL (3.4-5.0) Albumin/Globulin Ratio 1.0 (1.0-1.7) Lipase 172 U/L (73-393) Laboratory Tests Test 10/18/18 03:20 10/18/18 04:21 10/18/18 08:55 10/18/18 11:30 White Blood Count 3.9 x10^3/uL (4.0-11.0) Red Blood Count 3.63 x10^6/uL (3.50-5.40) Hemoglobin 12.3 g/dL (12.0-15.5) Hematocrit 35.5 % (36.0-47.0) Mean Corpuscular Volume 98 fL (79-100) Mean Corpuscular Hemoglobin 34 pg (25-35) Mean Corpuscular Hemoglobin Concent 35 g/dL (31-37) Red Cell Distribution Width 13.0 % (11.5-14.5) Platelet Count 253 x10^3/uL (140-400) Neutrophils (%) (Auto) 46 % (31-73) Lymphocytes (%) (Auto) 38 % (24-48) Monocytes (%) (Auto) 13 % (0-9) Eosinophils (%) (Auto) 3 % (0-3) Basophils (%) (Auto) 1 % (0-3) Neutrophils # (Auto) 1.8 x10^3uL (1.8-7.7) Lymphocytes # (Auto) 1.5 x10^3/uL (1.0-4.8) Monocytes # (Auto) 0.5 x10^3/uL (0.0-1.1) Eosinophils # (Auto) 0.1 x10^3/uL (0.0-0.7) Basophils # (Auto) 0.0 x10^3/uL (0.0-0.2) Prothrombin Time 21.0 SEC (11.7-14.0) Prothromb Time International Ratio 1.8 (0.8-1.1) Sodium Level 135 mmol/L (136-145) Potassium Level 4.2 mmol/L (3.5-5.1) Chloride Level 98 mmol/L (98-107) Carbon Dioxide Level 24 mmol/L (21-32) Anion Gap 13 (6-14) Blood Urea Nitrogen 30 mg/dL (7-20) Creatinine 1.1 mg/dL (0.6-1.0) Estimated GFR (Cockcroft-Gault) 62.6 BUN/Creatinine Ratio 27 (6-20) Glucose Level 99 mg/dL (70-99) Calcium Level 9.4 mg/dL (8.5-10.1) Magnesium Level 2.0 mg/dL (1.8-2.4) Total Bilirubin 0.3 mg/dL (0.2-1.0) Aspartate Amino Transf (AST/SGOT) 23 U/L (15-37) Alanine Aminotransferase (ALT/SGPT) 46 U/L (14-59) Alkaline Phosphatase 126 U/L (46-116) Troponin I Quantitative 0.054 ng/mL (0.000-0.055) 0.053 ng/mL (0.000-0.055) 0.044 ng/mL (0.000-0.055) ES-Rjz-B-Type Natriuretic Peptide 2460 pg/mL (0-124) Total Protein 8.2 g/dL (6.4-8.2) Albumin 4.0 g/dL (3.4-5.0) Albumin/Globulin Ratio 1.0 (1.0-1.7) Lipase 172 U/L (73-393) Assessment/Plan Assessment/Plan 1. Chest pain. Patient's pain has largely resolved. Troponin is minimally elevated 0.054. However the patient reports a history of coronary disease and previous myocardial infarction. Will complete a rule out protocol. Apparently her cardiac care has been at and we will obtain old records. Will check an [facility] for LV function. 2. Due to on chronic probable systolic heart failure. Patient reportedly has an AICD from . Also a possible attempted a cardiac ablation. Will diuresis tolerated. BNP elevated 2460. Echocardiogram as above. 3. Hypertension. Reasonable control. Continue medical treatment. 4. Breast cancer. Also apparently followed at . Thank you for allowing us to participate in the care of your patient. APRIL RICK MD October 18, 2018 17:43
[2018-10-18] MEDS: POTASSIUM CHLORIDE 10 MEQ TABLET.ER. PO SCH (18:03)
[2018-10-18] MEDS: CARVEDILOL 6.25 MG TABLET. PO SCH (18:03)
[2018-10-18] MEDS: CALCIUM CARBONATE 500 MG TABLET PO SCH (18:03)
[2018-10-18 19:00] VITALS: BP 95/61
[2018-10-18] MEDS ORDERED: FAMOTIDINE 20 MG TABLET. PO SCH (21:00)
[2018-10-18] MEDS: APIXABAN 5 MG TABLET. PO SCH (21:01)
[2018-10-18] MEDS: PANTOPRAZOLE 40 MG TABLET.DR. PO SCH (21:01)
[2018-10-18 22:57] VITALS: BP 81/49
[2018-10-18] MEDS: BISMUTH SUBSALICYLATE 262 MG/15 ML ORAL.SUSP 236ML BOTTLE. PO PRN (23:23)
[2018-10-19 02:56] VITALS: BP 85/52
[2018-10-19 05:49] LABS: CALCIUM 9.4 mg/dL (8.5-10.1); GFR 69.9; POTASSIUM 4.4 mmol/L (3.5-5.1)
[2018-10-19 05:50] LABS: CHOLESTEROL/HDL RATIO 2.7
[2018-10-19 07:00] VITALS: BP 95/56
[2018-10-19] MEDS: APIXABAN 5 MG TABLET. PO SCH ×2 (08:51→20:37)
[2018-10-19] MEDS: ASCORBIC ACID 500 MG TABLET PO SCH (08:51)
[2018-10-19] MEDS: CALCIUM CARBONATE 500 MG TABLET PO SCH ×2 (08:52→17:15)
[2018-10-19] MEDS: FUROSEMIDE 20 MG TABLET PO SCH ×2 (08:52→14:24)
[2018-10-19] MEDS: PANTOPRAZOLE 40 MG TABLET.DR. PO SCH (08:52)
[2018-10-19] MEDS: MAGNESIUM OXIDE 400 MG TABLET PO SCH (08:52)
[2018-10-19] MEDS: POTASSIUM CHLORIDE 10 MEQ TABLET.ER. PO SCH ×2 (08:52→17:17)
[2018-10-19] MEDS: FERROUS SULFATE 325 MG TABLET. PO SCH (08:52)
[2018-10-19] MEDS: MEXILETINE HCL 200 MG CAPSULE PO SCH ×3 (08:53→20:37)
[2018-10-19] MEDS: CARVEDILOL 6.25 MG TABLET. PO SCH ×2 (08:53→17:15)
[2018-10-19] MEDS: SPIRONOLACTONE 25 MG TABLET PO SCH (09:00)
[2018-10-19] MEDS: BISMUTH SUBSALICYLATE 262 MG/15 ML ORAL.SUSP 236ML BOTTLE. PO PRN (09:00)
[2018-10-19] MEDS: LISINOPRIL 5 MG TABLET. PO SCH (09:00)
[2018-10-19] MEDS: NON FORMULARY ITEM (Exemestane 25 MG) PO SCH (09:00)
[2018-10-19] MEDS: ALLOPURINOL 100 MG TABLET. PO SCH (09:00)
--- NOTE | 2018-10-19 09:54 | PDOC ---
PROGRESS NOTES Chief Complaint Chief Complaint chest pain on the lateral aspect of her AICD, describes it as though she is laying on it and feels it is "digging" at her sharply, pain was worse this am BP was in the 90s. On reevaluation chest pain , comes back if she moves too quickly. Some associated nausea. Troponin is borderline 0.054. BNP 2460. CXR does not contain the full lung pool, shows AICD, no obvious infiltrates or effusions. EKG - Paced rhythm underlying A. fib . echo pending Past Medical History Past Medical History: A-Fib, Hypertension, MO, Other Additional Past Medical Histor: BLOOD CLOTS Past Surgical History: Pacemaker, Other Additional Past Surgical Histo: CARDIAC ABLAtION, IVC FILTER PLACED AND REMOVED Alcohol Use: Occasionally Drug Use: None History of Present Illness History of Present Illness VTE Prophylaxis Ordered VTE Prophylaxis Devices: No VTE Pharmacological Prophylaxi: Yes Assessment/Plan Assessment/Plan A/P: Chest pain - seems to be pacer site pain and intermittent pain. She did not complete her stress test and is very high risk with her active cancer, will trend troponin, Unlikely a PE or dissection, already on NOAC Congestive heart failure s/p AICD - unknown ejection fraction, she seems in mild exacerbation with her shortness of breath and chest pain, will diurese a bit Afib - on NOAC, mexilitine HTN - monitor BP as it is low. Coreg as tolerated Active breast cancer - on exemestane, will continue Leukopenia - mild, possibly 2/2 cancer or variant Patient reportedly has an AICD from . Also attempted a cardiac ablation. remote tobacco abuse, stopped 2011 FEN - cardiac diet PPX - Eliquis FULL CODE Inpatient for high risk chest pain, mild CHF exacerbation 44 min pt exam, chart review, > 50% of time spent with chart review, pt exam, pt care coordination Vitals Vitals Vital Signs Date Time Temp Pulse Resp B/P (MAP) Pulse Ox O2 Delivery O2 Flow Rate FiO2 10/19/18 08:53 77 102/63 10/19/18 07:00 98.0 12 100 Room Air 98.0 Physical Exam General: Alert, Oriented X3, Cooperative, mild distress Heart: Regular rate Lungs: Clear Abdomen: Normal bowel sounds Extremities: No clubbing, No cyanosis, No edema, Normal pulses, No tenderness/swelling Skin: No rashes, No breakdown, No significant lesion Labs LABS Laboratory Tests Test 10/18/18 11:30 10/19/18 04:33 Troponin I Quantitative 0.044 ng/mL (0.000-0.055) 0.037 ng/mL (0.000-0.055) Sodium Level 135 mmol/L (136-145) Potassium Level 4.4 mmol/L (3.5-5.1) Chloride Level 101 mmol/L (98-107) Carbon Dioxide Level 24 mmol/L (21-32) Anion Gap 10 (6-14) Blood Urea Nitrogen 18 mg/dL (7-20) Creatinine 1.0 mg/dL (0.6-1.0) Estimated GFR (Cockcroft-Gault) 69.9 Glucose Level 99 mg/dL (70-99) Calcium Level 9.4 mg/dL (8.5-10.1) Triglycerides Level 19 mg/dL (0-150) Cholesterol Level 109 mg/dL (0-200) LDL Cholesterol, Calculated 65 mg/dL (0-100) VLDL Cholesterol, Calculated 4 mg/dL (0-40) Non-HDL Cholesterol Calculated 69 mg/dL (0-129) HDL Cholesterol 40 mg/dL (40-60) Cholesterol/HDL Ratio 2.7 Comment Review of Relevant I have reviewed the following items rodrigue (where applicable) has been applied. Labs Laboratory Tests Test 10/18/18 03:20 10/18/18 04:21 10/18/18 08:55 10/18/18 11:30 White Blood Count 3.9 x10^3/uL (4.0-11.0) Red Blood Count 3.63 x10^6/uL (3.50-5.40) Hemoglobin 12.3 g/dL (12.0-15.5) Hematocrit 35.5 % (36.0-47.0) Mean Corpuscular Volume 98 fL (79-100) Mean Corpuscular Hemoglobin 34 pg (25-35) Mean Corpuscular Hemoglobin Concent 35 g/dL (31-37) Red Cell Distribution Width 13.0 % (11.5-14.5) Platelet Count 253 x10^3/uL (140-400) Neutrophils (%) (Auto) 46 % (31-73) Lymphocytes (%) (Auto) 38 % (24-48) Monocytes (%) (Auto) 13 % (0-9) Eosinophils (%) (Auto) 3 % (0-3) Basophils (%) (Auto) 1 % (0-3) Neutrophils # (Auto) 1.8 x10^3uL (1.8-7.7) Lymphocytes # (Auto) 1.5 x10^3/uL (1.0-4.8) Monocytes # (Auto) 0.5 x10^3/uL (0.0-1.1) Eosinophils # (Auto) 0.1 x10^3/uL (0.0-0.7) Basophils # (Auto) 0.0 x10^3/uL (0.0-0.2) Prothrombin Time 21.0 SEC (11.7-14.0) Prothromb Time International Ratio 1.8 (0.8-1.1) Sodium Level 135 mmol/L (136-145) Potassium Level 4.2 mmol/L (3.5-5.1) Chloride Level 98 mmol/L (98-107) Carbon Dioxide Level 24 mmol/L (21-32) Anion Gap 13 (6-14) Blood Urea Nitrogen 30 mg/dL (7-20) Creatinine 1.1 mg/dL (0.6-1.0) Estimated GFR (Cockcroft-Gault) 62.6 BUN/Creatinine Ratio 27 (6-20) Glucose Level 99 mg/dL (70-99) Calcium Level 9.4 mg/dL (8.5-10.1) Magnesium Level 2.0 mg/dL (1.8-2.4) Total Bilirubin 0.3 mg/dL (0.2-1.0) Aspartate Amino Transf (AST/SGOT) 23 U/L (15-37) Alanine Aminotransferase (ALT/SGPT) 46 U/L (14-59) Alkaline Phosphatase 126 U/L (46-116) Troponin I Quantitative 0.054 ng/mL (0.000-0.055) 0.053 ng/mL (0.000-0.055) 0.044 ng/mL (0.000-0.055) GK-Hgf-T-Type Natriuretic Peptide 2460 pg/mL (0-124) Total Protein 8.2 g/dL (6.4-8.2) Albumin 4.0 g/dL (3.4-5.0) Albumin/Globulin Ratio 1.0 (1.0-1.7) Lipase 172 U/L (73-393) Test 10/19/18 04:33 Sodium Level 135 mmol/L (136-145) Potassium Level 4.4 mmol/L (3.5-5.1) Chloride Level 101 mmol/L (98-107) Carbon Dioxide Level 24 mmol/L (21-32) Anion Gap 10 (6-14) Blood Urea Nitrogen 18 mg/dL (7-20) Creatinine 1.0 mg/dL (0.6-1.0) Estimated GFR (Cockcroft-Gault) 69.9 Glucose Level 99 mg/dL (70-99) Calcium Level 9.4 mg/dL (8.5-10.1) Troponin I Quantitative 0.037 ng/mL (0.000-0.055) Triglycerides Level 19 mg/dL (0-150) Cholesterol Level 109 mg/dL (0-200) LDL Cholesterol, Calculated 65 mg/dL (0-100) VLDL Cholesterol, Calculated 4 mg/dL (0-40) Non-HDL Cholesterol Calculated 69 mg/dL (0-129) HDL Cholesterol 40 mg/dL (40-60) Cholesterol/HDL Ratio 2.7 Laboratory Tests Test 10/18/18 11:30 10/19/18 04:33 Troponin I Quantitative 0.044 ng/mL (0.000-0.055) 0.037 ng/mL (0.000-0.055) Sodium Level 135 mmol/L (136-145) Potassium Level 4.4 mmol/L (3.5-5.1) Chloride Level 101 mmol/L (98-107) Carbon Dioxide Level 24 mmol/L (21-32) Anion Gap 10 (6-14) Blood Urea Nitrogen 18 mg/dL (7-20) Creatinine 1.0 mg/dL (0.6-1.0) Estimated GFR (Cockcroft-Gault) 69.9 Glucose Level 99 mg/dL (70-99) Calcium Level 9.4 mg/dL (8.5-10.1) Triglycerides Level 19 mg/dL (0-150) Cholesterol Level 109 mg/dL (0-200) LDL Cholesterol, Calculated 65 mg/dL (0-100) VLDL Cholesterol, Calculated 4 mg/dL (0-40) Non-HDL Cholesterol Calculated 69 mg/dL (0-129) HDL Cholesterol 40 mg/dL (40-60) Cholesterol/HDL Ratio 2.7 Medications Current Medications Aspirin (Children'S Aspirin) 324 mg 1X ONCE PO Last administered on 10/18/18 03:37; Start 10/18/18 at 03:15; Stop 10/18/18 at 03:16; Status DC Multi-Ingredient Mouthwash/Gargle (Gi Cocktail) 20 ml 1X ONCE SWSW Last administered on 10/18/18 03:37; Start 10/18/18 at 03:15; Stop 10/18/18 at 03:16; Status DC Allopurinol (Zyloprim) 100 mg DAILY PO Last administered on 10/19/18 09:00; Start 10/18/18 at 13:00 Carvedilol (Coreg) 6.25 mg BIDWMEALS PO Last administered on 10/19/18 08:53; Start 10/18/18 at 17:00 Ferrous Sulfate (Feosol) 325 mg DAILY08 PO Last administered on 10/19/18 08:52; Start 10/18/18 at 13:00 Furosemide (Lasix) 20 mg BID92 PO Last administered on 10/19/18 08:52; Start 10/18/18 at 14:00 Mexiletine HCl (Mexitil) 200 mg TID PO Last administered on 10/19/18 08:53; Start 10/18/18 at 14:00 Potassium Chloride (Klor-Con) 10 meq BID66 PO Last administered on 10/19/18 08:52; Start 10/18/18 at 18:00 Ascorbic Acid (Vitamin C) 500 mg DAILY PO Last administered on 10/19/18 08:51; Start 10/18/18 at 13:00 Calcium Carbonate/ Glycine (Oscal) 500 mg BIDWMEALS PO Last administered on 10/19/18 08:52; Start 10/18/18 at 17:00 Apixaban (Eliquis) 5 mg BID PO Last administered on 10/19/18 08:51; Start 10/18/18 at 21:00 Non-Formulary Medication (Exemestane ) 25 mg DAILY PO ; Start 10/19/18 at 09:00; Status UNV Lisinopril (Prinivil) 2.5 mg DAILY PO Last administered on 10/18/18 13:46; Start 10/18/18 at 13:00 Magnesium Oxide (Magnesium Oxide) 400 mg DAILY PO Last administered on 10/19/18 08:52; Start 10/18/18 at 13:00 Famotidine (Pepcid) 20 mg BID PO ; Start 10/18/18 at 21:00; Status Cancel Spironolactone (Aldactone) 50 mg DAILY PO Last administered on 10/18/18at 13:45; Start 10/18/18 at 13:00 Info (Anti-Coagulation Monitoring By Pharmacy) 1 each PRN DAILY PRN MC SEE COMM ENTS Last administered on 10/18/18 16:51; Start 10/18/18 at 12:00 Pantoprazole Sodium (Protonix) 40 mg DAILYAC PO Last administered on 10/19/18 08:52; Start 10/18/18 at 19:45 Bismuth Subsalicylate (Pepto-Bismol) 262 mg PRN Q4HRS PRN PO DIARRHEA Last administered on 10/19/18 09:00; Start 10/18/18 at 23:15 Active Scripts Active Reported Magnesium Oxide 400 Mg Tablet 500 Mg PO DAILY Allopurinol 100 Mg Tablet 100 Mg PO DAILY Mexiletine Hcl 200 Mg Capsule 200 Mg PO TID Ranitidine Hcl 150 Mg Tablet 150 Mg PO BID Carvedilol (Carvedilol) 6.25 Mg Tablet 6.25 Mg PO BIDWMEALS Exemestane 25 Mg Tablet 25 Mg PO DAILY Potassium Chloride 10 Meq Tab.sr.24h 10 Meq PO BID66 Spironolactone 50 Mg Tablet 50 Mg PO DAILY Furosemide 20 Mg Tablet 20 Mg PO BID Vitamin C (Ascorbic Acid) 500 Mg Capsule 500 Mg PO DAILY Savaysa (Edoxaban Tosylate) 60 Mg Tablet 60 Mg PO DAILY Lisinopril 2.5 Mg Tablet 2.5 Mg PO DAILY Calcium Carbonate 600 Mg Tablet 600 Mg PO BID Ferrous Sulfate 325 Mg Tablet 325 Mg PO DAILY Vitals/I & O Vital Sign - Last 24 Hours 10/18/18 10/18/18 10/18/18 10/18/18 11:00 13:46 15:00 18:03 Temp 97.9 97.8 97.9 97.8 Pulse 80 75 79 60 Resp 14 16 B/P (MAP) 94/50 (65) 103/63 (76) Pulse Ox 100 100 O2 Delivery Room Air Room Air 10/18/18 10/18/18 10/18/18 10/19/18 19:00 20:00 22:57 02:56 Temp 97.9 98.1 97.5 97.9 98.1 97.5 Pulse 85 73 60 Resp 18 18 18 B/P (MAP) 95/61 (72) 81/49 (60) 85/52 (63) Pulse Ox 100 97 100 O2 Delivery Room Air Room Air Room Air Room Air 10/19/18 10/19/18 07:00 08:53 Temp 98.0 98.0 Pulse 98 77 Resp 12 B/P (MAP) 95/56 (69) 102/63 Pulse Ox 100 O2 Delivery Room Air Intake and Output 10/18/18 10/18/18 10/19/18 14:59 22:59 06:59 Output Total 250 ml Balance -250 ml RIAZ BAH MD October 19, 2018 09:53
[2018-10-19 10:35] LABS: BASO % 1 % (0-3); EOS # 0.1 x10^3/uL (0.0-0.7); EOS % 3 % (0-3); HEMATOCRIT 33.7 % (36.0-47.0); HEMOGLOBIN 11.6 g/dL (12.0-15.5); LYMPH # 1.2 x10^3/uL (1.0-4.8); LYMPH % 35 % (24-48); MEAN CORPUSCULAR HEMOGLOBIN 34 pg (25-35); MEAN CORPUSCULAR HGB CONC 34 g/dL (31-37); MEAN CORPUSCULAR VOLUME 98 fL (79-100); MONO # 0.6 x10^3/uL (0.0-1.1); MONO % 16 % (0-9); NEUT # 1.7 x10^3uL (1.8-7.7); NEUT % 46 % (31-73); PLATELET COUNT 206 x10^3/uL (140-400); RED BLOOD COUNT 3.44 x10^6/uL (3.50-5.40); WHITE BLOOD COUNT 3.6 x10^3/uL (4.0-11.0)
[2018-10-19] MEDS ORDERED: IOHEXOL 300 MG/ML 100ML VIAL. IV ONE (10:45)
[2018-10-19] MEDS ORDERED: IOHEXOL 240 MG/ML 50ML VIAL. PO ONE (10:45)
--- NOTE | 2018-10-19 10:51 | CARD ---
MR#: [id number] Date of Study: 10/19/2018 Ordering Physician: APRIL ABDUL, Referring Physician: BENSON REAGAN Tech: Beth Cerna RDCS APPROVED REPORT EXAM: Two-dimensional and M-mode echocardiogram with Doppler and color Doppler. Other Information Quality : GoodHR: 74bpm Rhythm : NSR INDICATION Congestive Heart Failure 2D DIMENSIONS RVDd3.7 (2.9-3.5cm)Left Atrium(2D)4.1 (1.6-4.0cm) IVSd0.6 (0.7-1.1cm)Aortic Root(2D)2.3 (2.0-3.7cm) LVDd5.2 (3.9-5.9cm)LVOT Diameter1.8 (1.8-2.4cm) PWd0.8 (0.7-1.1cm)LVDs4.7 (2.5-4.0cm) FS (%) 11.3 %SV32.0 ml M-Mode DIMENSIONS Left Atrium(MM)4.04 (2.5-4.0cm)Aortic Root2.52 (2.2-3.7cm) Aortic Valve AoV Peak Matty.95.6cm/sAoV VTI19.5cm AO Peak GR.3.7mmHgLVOT Peak Matty.75.6cm/s AO Mean GR.2mmHgAVA (VMAX)2.11cm2 ARLYN (VTI)2.20cm2 Mitral Valve MV E Rnskpdup42.1cm/sMV DECEL [id number] MV A Ytphgfrp36.6cm/sE/A Ratio7.1 Pulmonary Valve PV Peak Mbejatzo17.3cm/s Tricuspid Valve TR P. [id number]/sRAP [id number] TR Peak Gr.[id number] LEFT VENTRICLE The Left Ventricle is mildly dilated. There is normal left ventricular wall thickness. The ejection f raction is severely impaired. The Ejection Fraction is less than 20%. There is severe global hypokine sis of the left ventricle. Transmitral Doppler flow pattern is abnormal. RIGHT VENTRICLE The right ventricle is normal size. There is normal right ventricular wall thickness. Systolic functi on is mildly reduced. Device lead noted in RV/RA. ATRIA The left atrium is mildly dilated. The right atrium size is normal. The interatrial septum is intact with no evidence for an atrial septal defect or patent foramen ovale as noted on 2-D or Doppler imagi ng. AORTIC VALVE The aortic valve is normal in structure and function. The aortic valve is trileaflet. Doppler and Col or Flow revealed no significant aortic regurgitation. There is no significant aortic valvular stenosi s. There is no aortic valvular vegetation. MITRAL VALVE The mitral valve is thickened but opens well. There is no evidence of mitral valve prolapse. There is no mitral valve stenosis. Doppler and Color-flow revealed mild mitral regurgitation. TRICUSPID VALVE The tricuspid valve is normal in structure and function. Doppler and Color Flow revealed mild to mode rate tricuspid regurgitation. There is moderate pulmonary hypertension. The PA pressure was estimated at 50 mmHg. There is no tricuspid valve prolapse or vegetation. There is no tricuspid valve stenosis . PULMONIC VALVE The pulmonary valve is normal in structure and function. Doppler and Color Flow revealed no pulmonic valvular regurgitation. There is no pulmonic valvular stenosis. GREAT VESSELS The aortic root is normal in size. The ascending aorta is normal in size. The IVC is dilated. PERICARDIAL EFFUSION There is no evidence of significant pericardial effusion. Critical Notification Critical Value: No <Conclusion> The Left Ventricle is mildly dilated. The ejection fraction is severely impaired. The Ejection Fraction is less than 20%. There is severe global hypokinesis of the left ventricle. Device lead noted in RV/RA. There is no significant aortic valvular stenosis. Doppler and Color Flow revealed no significant aortic regurgitation. Doppler and Color-flow revealed mild mitral regurgitation. Doppler and Color Flow revealed mild to moderate tricuspid regurgitation. There is moderate pulmonary hypertension. The PA pressure was estimated at 50 mmHg. Signed by : April Abdul MD Electronically Approved : 10/19/2018 10:51:08
[2018-10-19 11:34] VITALS: BP 95/56
--- NOTE | 2018-10-19 11:52 | PDOC ---
CARDIO Progress Notes Date and Time Date of Service 10/19/18 Time of Evaluation 1115 Subjective Subjective: No Chest Pain, No shortness of breath, Other (epigastric pain overnight- improved with Pepto Bismol) Vitals Vitals Vital Signs Date Time Temp Pulse Resp B/P (MAP) Pulse Ox O2 Delivery O2 Flow Rate FiO2 10/19/18 11:34 97.9 80 16 95/56 (69) 98 Room Air 97.9 Weight Weight [ ] Input and Output Intake and Output Intake and Output 10/19/18 07:00 Output Total 250 ml Balance -250 ml Output Urine Total 250 ml # Voids 4 Laboratory Labs Laboratory Tests Test 10/19/18 04:33 White Blood Count 3.6 x10^3/uL (4.0-11.0) Red Blood Count 3.44 x10^6/uL (3.50-5.40) Hemoglobin 11.6 g/dL (12.0-15.5) Hematocrit 33.7 % (36.0-47.0) Mean Corpuscular Volume 98 fL (79-100) Mean Corpuscular Hemoglobin 34 pg (25-35) Mean Corpuscular Hemoglobin Concent 34 g/dL (31-37) Red Cell Distribution Width 13.0 % (11.5-14.5) Platelet Count 206 x10^3/uL (140-400) Neutrophils (%) (Auto) 46 % (31-73) Lymphocytes (%) (Auto) 35 % (24-48) Monocytes (%) (Auto) 16 % (0-9) Eosinophils (%) (Auto) 3 % (0-3) Basophils (%) (Auto) 1 % (0-3) Neutrophils # (Auto) 1.7 x10^3uL (1.8-7.7) Lymphocytes # (Auto) 1.2 x10^3/uL (1.0-4.8) Monocytes # (Auto) 0.6 x10^3/uL (0.0-1.1) Eosinophils # (Auto) 0.1 x10^3/uL (0.0-0.7) Basophils # (Auto) 0.0 x10^3/uL (0.0-0.2) Sodium Level 135 mmol/L (136-145) Potassium Level 4.4 mmol/L (3.5-5.1) Chloride Level 101 mmol/L (98-107) Carbon Dioxide Level 24 mmol/L (21-32) Anion Gap 10 (6-14) Blood Urea Nitrogen 18 mg/dL (7-20) Creatinine 1.0 mg/dL (0.6-1.0) Estimated GFR (Cockcroft-Gault) 69.9 Glucose Level 99 mg/dL (70-99) Calcium Level 9.4 mg/dL (8.5-10.1) Troponin I Quantitative 0.037 ng/mL (0.000-0.055) Triglycerides Level 19 mg/dL (0-150) Cholesterol Level 109 mg/dL (0-200) LDL Cholesterol, Calculated 65 mg/dL (0-100) VLDL Cholesterol, Calculated 4 mg/dL (0-40) Non-HDL Cholesterol Calculated 69 mg/dL (0-129) HDL Cholesterol 40 mg/dL (40-60) Cholesterol/HDL Ratio 2.7 Physical Exam HEENT: Neck Supple W Full Motion Chest: Symmetric LUNGS: Clear to Auscultation Heart: S1S2, murmurs (2/6 systolic murmur ), irregularly irregular (paced with underlying AFIB) Abdomen: Soft N/T Extremities: No Edema Neurology: alert, oriented, follow commands Assessment Assessment 1. Chest pain, atypical. Most probably GI in nature. Improved with Pepto-Bismol and water 2. Mild troponin elevation; peak 0.055. Echo revealed LVEF 20%. Which is consistent with most recent per [facility] chart review. 3. Acute on chronic systolic heart failure; now compensated. 4. NICM; s/p AICD, ELECT[employer]ER-D ([employer]) 5. H/o LV thrombus embolized to LAD s/p PCI/stent and thrombus extraction in 2014. 6. AFIB, permanent; Eliquis for stroke prevention 7. H/o VT. S/p VT ablation in 2012. on Mexiletine 8. Hypertension; low-normotensive 9. Breast CA 10. H/o DVT s/p IVC filter Recommendations Increase activities. Monitor overnight Continue secondary prevention measures Continue Lasix therapy Hold coreg as warranted for low BP If stable overnight, may discharge from a CV standpoint and f/u with [facility] on an outpatient basis SON ASH APRN October 19, 2018 11:51
--- NOTE | 2018-10-19 13:16 | NUR ---
SS following for discharge planning. SS reviewed pt chart. Pt is from home and is currently on room air. No discharge needs noted at this time. SS will continue to follow for pending discharge needs.
--- NOTE | 2018-10-19 13:35 | RAD ---
CT of the abdomen and pelvis with contrast, 10/19/2018: HISTORY: Mass, adenopathy Multidetector CT imaging was performed following an IV bolus injection of iodinated contrast material. No oral contrast material was administered as requested. Comparison is made to a study from 08/26/2017. The heart is enlarged. The lung bases are clear. There is no evidence of pleural fluid. No hepatic mass or bile duct dilatation is seen. The liver appears to be of lower than normal density suggesting hepatic steatosis. There is a linear radiopaque foreign body within the left lobe of the liver which is unchanged. This could be due to previous surgery or penetrating trauma. The gallbladder is small and shows no evidence of gallstones. Unopacified small bowel loops in the left upper quadrant cannot be clearly from the pancreatic tail. There is mild pancreatic ductal dilatation also noted on the previous study. The spleen is of normal size. The kidneys show no evidence of obstruction. There are small cortical lucencies along the lateral aspect of the lower pole the right kidney which were not evident on the previous study. The appearance raises the possibility of infection. The abdominal aorta is unremarkable. No retroperitoneal or mesenteric adenopathy is evident. No pelvic adenopathy is seen. A prominent lymph node type density evident at the right groin on the previous study has regressed and is now of normal size. The bowel loops are not dilated. No free fluid or free air is evident in the abdomen or pelvis. IMPRESSION: 1. Unchanged pancreatic ductal dilatation. 2. Possible hepatic steatosis 3. Minimal right inguinal adenopathy has resolved. 4. Right renal cortical lucencies suggesting infection versus scarring. PQRS Compliance Statement: One or more of the following individualized dose reduction techniques were utilized for this examination: 1. Automated exposure control 2. Adjustment of the mA and/or kV according to patient size 3. Use of iterative reconstruction technique Electronically signed by: Lorenzo Zacarias MD (10/19/2018 1:33 PM) [facility]
[2018-10-19 15:00] VITALS: BP 92/54
--- NOTE | 2018-10-19 18:17 | NUR ---
Emar documentation: Non-administered 1700 dose of potassium since I held earlier dose of furosemide and spironolactone due to low blood pressure. Yuly Banks notified.
[2018-10-19 19:00] VITALS: BP 114/66
[2018-10-19 23:33] VITALS: BP 91/53
[2018-10-20 03:00] VITALS: BP 77/46
[2018-10-20 04:32] LABS: ALBUMIN 3.7 g/dL (3.4-5.0); CALCIUM 9.2 mg/dL (8.5-10.1); GFR 69.9; POTASSIUM 3.9 mmol/L (3.5-5.1); TOTAL BILIRUBIN 0.4 mg/dL (0.2-1.0); TOTAL PROTEIN 7.5 g/dL (6.4-8.2)
[2018-10-20 05:28] VITALS: BP 83/46
[2018-10-20] MEDS: PANTOPRAZOLE 40 MG TABLET.DR. PO SCH (05:28)
[2018-10-20] MEDS: POTASSIUM CHLORIDE 10 MEQ TABLET.ER. PO SCH (05:28)
[2018-10-20 07:00] VITALS: BP 88/59
[2018-10-20] MEDS: CARVEDILOL 3.125 MG TABLET. PO SCH ×2 (08:00→08:36)
[2018-10-20] MEDS: BISMUTH SUBSALICYLATE 262 MG/15 ML ORAL.SUSP 236ML BOTTLE. PO PRN (08:12)
[2018-10-20] MEDS: CALCIUM CARBONATE 500 MG TABLET PO SCH (08:13)
[2018-10-20] MEDS: ALLOPURINOL 100 MG TABLET. PO SCH (08:13)
[2018-10-20] MEDS: FERROUS SULFATE 325 MG TABLET. PO SCH (08:14)
[2018-10-20] MEDS: SPIRONOLACTONE 25 MG TABLET PO SCH (08:14)
[2018-10-20] MEDS: ASCORBIC ACID 500 MG TABLET PO SCH (08:14)
[2018-10-20] MEDS: APIXABAN 5 MG TABLET. PO SCH (08:14)
[2018-10-20] MEDS: MEXILETINE HCL 200 MG CAPSULE PO SCH ×2 (08:14→14:01)
[2018-10-20] MEDS: MAGNESIUM OXIDE 400 MG TABLET PO SCH (08:14)
[2018-10-20] MEDS: FUROSEMIDE 20 MG TABLET PO SCH ×2 (08:14→14:01)
[2018-10-20] MEDS: LISINOPRIL 5 MG TABLET. PO SCH (08:19)
[2018-10-20] MEDS: NON FORMULARY ITEM (Exemestane 25 MG) PO SCH (09:00)
--- NOTE | 2018-10-20 10:27 | PDOC ---
PROGRESS NOTES Chief Complaint Chief Complaint chest pain on the lateral aspect of her AICD, describes it as though she is laying on it and feels it is "digging" at her sharply, pain was worse this am BP was in the 90s. On reevaluation chest pain , comes back if she moves too quickly. Some associated nausea. Troponin is borderline 0.054. BNP 2460. CXR does not contain the full lung pool, shows AICD, no obvious infiltrates or effusions. EKG - Paced rhythm underlying A. fib . echo pending Past Medical History Past Medical History: A-Fib, Hypertension, DE, Other Additional Past Medical Histor: BLOOD CLOTS Past Surgical History: Pacemaker, Other Additional Past Surgical Histo: CARDIAC ABLAtION, IVC FILTER PLACED AND REMOVED Alcohol Use: Occasionally Drug Use: None History of Present Illness History of Present Illness VTE Prophylaxis Ordered VTE Prophylaxis Devices: No VTE Pharmacological Prophylaxi: Yes Assessment/Plan Assessment/Plan A/P: Chest pain - seems to be pacer site pain and intermittent pain. She did not complete her stress test and is very high risk with her active cancer, will trend troponin, Unlikely a PE or dissection, already on NOAC Congestive heart failure s/p AICD - unknown ejection fraction, she seems in mild exacerbation with her shortness of breath and chest pain, will diurese a bit Afib - on NOAC, mexilitine HTN - monitor BP as it is low. Coreg as tolerated Active breast cancer - on exemestane, will continue Leukopenia - mild, possibly 2/2 cancer or variant Patient reportedly has an AICD from . Also attempted a cardiac ablation. 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 History of thrombus embolization to the LAD status post stenting and extraction in 2014. Permanent atrial fibrillation. On Eliquis. History of DVT. Status post ablation in 2012. Continues on mexiletine. Breast carcinoma. Also followed at . Overall the patient is improving. She has had her cardiovascular care at and in fact had appointment either today or tomorrow with her primary de[facility] 34 min pt exam, chart review,D/C PLANNING > 50% of time spent with chart review, pt exam, pt care coordination Vitals Vitals Vital Signs Date Time Temp Pulse Resp B/P (MAP) Pulse Ox O2 Delivery O2 Flow Rate FiO2 10/20/18 08:36 64 94/57 10/20/18 08:00 Room Air 10/20/18 07:00 98.3 12 99 98.3 Physical Exam General: Alert, Oriented X3, Cooperative, No acute distress, mild distress Heart: Regular rate Lungs: Clear Abdomen: Normal bowel sounds Extremities: No clubbing, No cyanosis, No edema, Normal pulses, No tenderness/swelling Skin: No rashes, No breakdown, No significant lesion Labs LABS Laboratory Tests Test 10/20/18 03:35 Sodium Level 138 mmol/L (136-145) Potassium Level 3.9 mmol/L (3.5-5.1) Chloride Level 103 mmol/L (98-107) Carbon Dioxide Level 23 mmol/L (21-32) Anion Gap 12 (6-14) Blood Urea Nitrogen 16 mg/dL (7-20) Creatinine 1.0 mg/dL (0.6-1.0) Estimated GFR (Cockcroft-Gault) 69.9 BUN/Creatinine Ratio 16 (6-20) Glucose Level 98 mg/dL (70-99) Calcium Level 9.2 mg/dL (8.5-10.1) Total Bilirubin 0.4 mg/dL (0.2-1.0) Aspartate Amino Transf (AST/SGOT) 21 U/L (15-37) Alanine Aminotransferase (ALT/SGPT) 39 U/L (14-59) Alkaline Phosphatase 124 U/L (46-116) Total Protein 7.5 g/dL (6.4-8.2) Albumin 3.7 g/dL (3.4-5.0) Albumin/Globulin Ratio 1.0 (1.0-1.7) Comment Review of Relevant I have reviewed the following items rodrigue (where applicable) has been applied. Labs Laboratory Tests Test 10/18/18 11:30 10/19/18 04:33 10/20/18 03:35 Troponin I Quantitative 0.044 ng/mL (0.000-0.055) 0.037 ng/mL (0.000-0.055) White Blood Count 3.6 x10^3/uL (4.0-11.0) Red Blood Count 3.44 x10^6/uL (3.50-5.40) Hemoglobin 11.6 g/dL (12.0-15.5) Hematocrit 33.7 % (36.0-47.0) Mean Corpuscular Volume 98 fL (79-100) Mean Corpuscular Hemoglobin 34 pg (25-35) Mean Corpuscular Hemoglobin Concent 34 g/dL (31-37) Red Cell Distribution Width 13.0 % (11.5-14.5) Platelet Count 206 x10^3/uL (140-400) Neutrophils (%) (Auto) 46 % (31-73) Lymphocytes (%) (Auto) 35 % (24-48) Monocytes (%) (Auto) 16 % (0-9) Eosinophils (%) (Auto) 3 % (0-3) Basophils (%) (Auto) 1 % (0-3) Neutrophils # (Auto) 1.7 x10^3uL (1.8-7.7) Lymphocytes # (Auto) 1.2 x10^3/uL (1.0-4.8) Monocytes # (Auto) 0.6 x10^3/uL (0.0-1.1) Eosinophils # (Auto) 0.1 x10^3/uL (0.0-0.7) Basophils # (Auto) 0.0 x10^3/uL (0.0-0.2) Sodium Level 135 mmol/L (136-145) 138 mmol/L (136-145) Potassium Level 4.4 mmol/L (3.5-5.1) 3.9 mmol/L (3.5-5.1) Chloride Level 101 mmol/L (98-107) 103 mmol/L (98-107) Carbon Dioxide Level 24 mmol/L (21-32) 23 mmol/L (21-32) Anion Gap 10 (6-14) 12 (6-14) Blood Urea Nitrogen 18 mg/dL (7-20) 16 mg/dL (7-20) Creatinine 1.0 mg/dL (0.6-1.0) 1.0 mg/dL (0.6-1.0) Estimated GFR (Cockcroft-Gault) 69.9 69.9 Glucose Level 99 mg/dL (70-99) 98 mg/dL (70-99) Calcium Level 9.4 mg/dL (8.5-10.1) 9.2 mg/dL (8.5-10.1) Triglycerides Level 19 mg/dL (0-150) Cholesterol Level 109 mg/dL (0-200) LDL Cholesterol, Calculated 65 mg/dL (0-100) VLDL Cholesterol, Calculated 4 mg/dL (0-40) Non-HDL Cholesterol Calculated 69 mg/dL (0-129) HDL Cholesterol 40 mg/dL (40-60) Cholesterol/HDL Ratio 2.7 BUN/Creatinine Ratio 16 (6-20) Total Bilirubin 0.4 mg/dL (0.2-1.0) Aspartate Amino Transf (AST/SGOT) 21 U/L (15-37) Alanine Aminotransferase (ALT/SGPT) 39 U/L (14-59) Alkaline Phosphatase 124 U/L (46-116) Total Protein 7.5 g/dL (6.4-8.2) Albumin 3.7 g/dL (3.4-5.0) Albumin/Globulin Ratio 1.0 (1.0-1.7) Laboratory Tests Test 10/20/18 03:35 Sodium Level 138 mmol/L (136-145) Potassium Level 3.9 mmol/L (3.5-5.1) Chloride Level 103 mmol/L (98-107) Carbon Dioxide Level 23 mmol/L (21-32) Anion Gap 12 (6-14) Blood Urea Nitrogen 16 mg/dL (7-20) Creatinine 1.0 mg/dL (0.6-1.0) Estimated GFR (Cockcroft-Gault) 69.9 BUN/Creatinine Ratio 16 (6-20) Glucose Level 98 mg/dL (70-99) Calcium Level 9.2 mg/dL (8.5-10.1) Total Bilirubin 0.4 mg/dL (0.2-1.0) Aspartate Amino Transf (AST/SGOT) 21 U/L (15-37) Alanine Aminotransferase (ALT/SGPT) 39 U/L (14-59) Alkaline Phosphatase 124 U/L (46-116) Total Protein 7.5 g/dL (6.4-8.2) Albumin 3.7 g/dL (3.4-5.0) Albumin/Globulin Ratio 1.0 (1.0-1.7) Medications Current Medications Aspirin (Children'S Aspirin) 324 mg 1X ONCE PO Last administered on 10/18/18 03:37; Start 10/18/18 at 03:15; Stop 10/18/18 at 03:16; Status DC Multi-Ingredient Mouthwash/Gargle (Gi Cocktail) 20 ml 1X ONCE SWSW Last administered on 10/18/18 03:37; Start 10/18/18 at 03:15; Stop 10/18/18 at 03:16; Status DC Allopurinol (Zyloprim) 100 mg DAILY PO Last administered on 10/20/18 08:13; Start 10/18/18 at 13:00 Carvedilol (Coreg) 6.25 mg BIDWMEALS PO Last administered on 10/19/18 17:15; Start 10/18/18 at 17:00; Stop 10/20/18 at 07:46; Status DC Ferrous Sulfate (Feosol) 325 mg DAILY08 PO Last administered on 10/20/18 08:14; Start 10/18/18 at 13:00 Furosemide (Lasix) 20 mg BID92 PO Last administered on 10/20/18 08:14; Start 10/18/18 at 14:00 Mexiletine HCl (Mexitil) 200 mg TID PO Last administered on 10/20/18 08:14; Start 10/18/18 at 14:00 Potassium Chloride (Klor-Con) 10 meq BID66 PO Last administered on 10/20/18 05:28; Start 10/18/18 at 18:00 Ascorbic Acid (Vitamin C) 500 mg DAILY PO Last administered on 10/20/18 08:14; Start 10/18/18 at 13:00 Calcium Carbonate/ Glycine (Oscal) 500 mg BIDWMEALS PO Last administered on 10/20/18 08:13; Start 10/18/18 at 17:00 Apixaban (Eliquis) 5 mg BID PO Last administered on 10/20/18 08:14; Start 10/18/18 at 21:00 Non-Formulary Medication (Exemestane ) 25 mg DAILY PO ; Start 10/19/18 at 09:00; Status UNV Lisinopril (Prinivil) 2.5 mg DAILY PO Last administered on 10/18/18 13:46; Start 10/18/18 at 13:00 Magnesium Oxide (Magnesium Oxide) 400 mg DAILY PO Last administered on 10/20/18 08:14; Start 10/18/18 at 13:00 Famotidine (Pepcid) 20 mg BID PO ; Start 10/18/18 at 21:00; Status Cancel Spironolactone (Aldactone) 50 mg DAILY PO Last administered on 10/20/18at 08:14; Start 10/18/18 at 13:00 Info (Anti-Coagulation Monitoring By Pharmacy) 1 each PRN DAILY PRN MC SEE COMMENTS Last administered on 10/18/18at 16:51; Start 10/18/18 at 12:00 Pantoprazole Sodium (Protonix) 40 mg DAILYAC PO Last administered on 10/20/18at 05:28; Start 10/18/18 at 19:45 Bismuth Subsalicylate (Pepto-Bismol) 262 mg PRN Q4HRS PRN PO DIARRHEA Last administered on 10/20/18at 08:12; Start 10/18/18 at 23:15 Iohexol (Omnipaque 240 Mg/ml) 30 ml 1X ONCE PO ; Start 10/19/18 at 10:45; Stop 10/19/18 at 10:46; Status DC Iohexol (Omnipaque 300 Mg/ml) 75 ml 1X ONCE IV Last administered on 10/19/18at 10:45; Start 10/19/18 at 10:45; Stop 10/19/18 at 10:46; Status DC Carvedilol (Coreg) 3.125 mg BIDWMEALS PO Last administered on 10/20/18at 08:36; Start 10/20/18 at 08:00 Active Scripts Active Reported Magnesium Oxide 400 Mg Tablet 500 Mg PO DAILY Allopurinol 100 Mg Tablet 100 Mg PO DAILY Mexiletine Hcl 200 Mg Capsule 200 Mg PO TID Ranitidine Hcl 150 Mg Tablet 150 Mg PO BID Carvedilol (Carvedilol) 6.25 Mg Tablet 6.25 Mg PO BIDWMEALS Exemestane 25 Mg Tablet 25 Mg PO DAILY Potassium Chloride 10 Meq Tab.sr.24h 10 Meq PO BID66 Spironolactone 50 Mg Tablet 50 Mg PO DAILY Furosemide 20 Mg Tablet 20 Mg PO BID Vitamin C (Ascorbic Acid) 500 Mg Capsule 500 Mg PO DAILY Savaysa (Edoxaban Tosylate) 60 Mg Tablet 60 Mg PO DAILY Lisinopril 2.5 Mg Tablet 2.5 Mg PO DAILY Calcium Carbonate 600 Mg Tablet 600 Mg PO BID Ferrous Sulfate 325 Mg Tablet 325 Mg PO DAILY Vitals/I & O Vital Sign - Last 24 Hours 10/19/18 10/19/18 10/19/18 10/19/18 11:34 15:00 17:15 19:00 Temp 97.9 98.2 98.2 97.9 98.2 98.2 Pulse 80 72 72 78 Resp 16 16 16 B/P (MAP) 95/56 (69) 92/54 (67) 109/66 114/66 (82) Pulse Ox 98 100 99 O2 Delivery Room Air Room Air Room Air 10/19/18 10/19/18 10/20/18 10/20/18 19:05 23:33 03:00 05:28 Temp 98.2 97.9 98.2 97.9 Pulse 71 75 60 Resp 16 16 B/P (MAP) 91/53 (66) 77/46 (56) 83/46 (58) Pulse Ox 99 98 O2 Delivery Room Air Room Air Room Air 10/20/18 10/20/18 10/20/18 10/20/18 07:00 08:00 08:00 08:19 Temp 98.3 98.3 Pulse 79 64 68 Resp 12 B/P (MAP) 88/59 (69) 94/57 94/57 Pulse Ox 99 O2 Delivery Room Air Room Air 10/20/18 08:36 Pulse 64 B/P (MAP) 94/57 Intake and Output 10/19/18 10/19/18 10/20/18 15:00 23:00 07:00 Intake Total 240 ml 240 ml Output Total 500 ml Balance 240 ml -260 ml RIAZ BAH MD October 20, 2018 10:27
[2018-10-20] MEDS: ANTI-COAG MONITOR BY PHARMACY. MC PRN (10:29)
[2018-10-20 11:00] VITALS: BP 110/67
--- NOTE | 2018-10-20 14:15 | PDOC3 ---
Discharge Summary Date of Admission: October 18, 2018 Date of Discharge: October 20, 2018 Follow-Up: 1-2 days Admitting Diagnosis comment: DISCHARGE DX Assessment/Plan A/P: Chest pain - seems to be pacer site pain and intermittent pain. She did not complete her stress test and is very high risk with her active cancer, will trend troponin, Unlikely a PE or dissection, already on NOAC Congestive heart failure s/p AICD - unknown ejection fraction, she seems in mild exacerbation with her shortness of breath and chest pain, will diurese a bit Afib - on NOAC, mexilitine HTN - monitor BP as it is low. Coreg as tolerated Active breast cancer - on exemestane, will continue Leukopenia - mild, possibly 2/2 cancer or variant Patient reportedly has an AICD from . Also attempted a cardiac ablation. 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 History of thrombus embolization to the LAD status post stenting and extraction in 2014. Permanent atrial fibrillation. On Eliquis. History of DVT. Status post ablation in 2012. Continues on mexiletine. Breast carcinoma. Also followed at . Overall the patient is improving. She has had her cardiovascular care at and in fact had appointment either today or tomorrow with her primary director of sustainability programs 34 min pt exam, chart review,D/C PLANNING > 50% of time spent with chart review, pt exam, pt care coordination Vitals Vitals Vital Signs Date Time Temp Pulse Resp B/P (MAP) Pulse Ox O2 Delivery O2 Flow Rate FiO2 10/20/18 08:36 64 94/57 10/20/18 08:00 Room Air 10/20/18 07:00 98.3 12 99 98.3 Physical Exam General: Alert, Oriented X3, Cooperative, No acute distress, mild distress Heart: Regular rate Lungs: Clear Abdomen: Normal bowel sounds Extremities: No clubbing, No cyanosis, No edema, Normal pulses, No tenderness/swelling Skin: No rashes, No breakdown, No significant lesion Brief Hospital Course Ms. Martin is a 52 old [sex] who presented with [CHEST DISCOMFORT ] CONDITION AT DISCHARGE: Improved Discharge Medications Current Medications Aspirin (Children'S Aspirin) 324 mg 1X ONCE PO Last administered on 10/18/18 03:37; Start 10/18/18 at 03:15; Stop 10/18/18 at 03:16; Status DC Multi-Ingredient Mouthwash/Gargle (Gi Cocktail) 20 ml 1X ONCE SWSW Last administered on 10/18/18 03:37; Start 10/18/18 at 03:15; Stop 10/18/18 at 03:16; Status DC Allopurinol (Zyloprim) 100 mg DAILY PO Last administered on 10/20/18 08:13; Start 10/18/18 at 13:00 Carvedilol (Coreg) 6.25 mg BIDWMEALS PO Last administered on 10/19/18 17:15; Start 10/18/18 at 17:00; Stop 10/20/18 at 07:46; Status DC Ferrous Sulfate (Feosol) 325 mg DAILY08 PO Last administered on 10/20/18 08:14; Start 10/18/18 at 13:00 Furosemide (Lasix) 20 mg BID92 PO Last administered on 10/20/18 14:01; Start 10/18/18 at 14:00 Mexiletine HCl (Mexitil) 200 mg TID PO Last administered on 10/20/18 14:01; Start 10/18/18 at 14:00 Potassium Chloride (Klor-Con) 10 meq BID66 PO Last administered on 10/20/18 05:28; Start 10/18/18 at 18:00 Ascorbic Acid (Vitamin C) 500 mg DAILY PO Last administered on 10/20/18 08:14; Start 10/18/18 at 13:00 Calcium Carbonate/ Glycine (Oscal) 500 mg BIDWMEALS PO Last administered on 10/20/18 08:13; Start 10/18/18 at 17:00 Apixaban (Eliquis) 5 mg BID PO Last administered on 10/20/18 08:14; Start 10/18/18 at 21:00 Non-Formulary Medication (Exemestane ) 25 mg DAILY PO ; Start 10/19/18 at 09:00; Status UNV Lisinopril (Prinivil) 2.5 mg DAILY PO Last administered on 10/18/18at 13:46; Start 10/18/18 at 13:00 Magnesium Oxide (Magnesium Oxide) 400 mg DAILY PO Last administered on 10/20/18at 08:14; Start 10/18/18 at 13:00 Famotidine (Pepcid) 20 mg BID PO ; Start 10/18/18 at 21:00; Status Cancel Spironolactone (Aldactone) 50 mg DAILY PO Last administered on 10/20/18at 08:14; Start 10/18/18 at 13:00 Info (Anti-Coagulation Monitoring By Pharmacy) 1 each PRN DAILY PRN MC SEE COMMENTS Last administered on 10/20/18at 10:29; Start 10/18/18 at 12:00 Pantoprazole Sodium (Protonix) 40 mg DAILYAC PO Last administered on 10/20/18at 05:28; Start 10/18/18 at 19:45 Bismuth Subsalicylate (Pepto-Bismol) 262 mg PRN Q4HRS PRN PO DIARRHEA Last administered on 10/20/18at 08:12; Start 10/18/18 at 23:15 Iohexol (Omnipaque 240 Mg/ml) 30 ml 1X ONCE PO ; Start 10/19/18 at 10:45; Stop 10/19/18 at 10:46; Status DC Iohexol (Omnipaque 300 Mg/ml) 75 ml 1X ONCE IV Last administered on 10/19/18at 10:45; Start 10/19/18 at 10:45; Stop 10/19/18 at 10:46; Status DC Carvedilol (Coreg) 3.125 mg BIDWMEALS PO Last administered on 10/20/18at 08:36; Start 10/20/18 at 08:00 Active Scripts Active Reported Magnesium Oxide 400 Mg Tablet 500 Mg PO DAILY Allopurinol 100 Mg Tablet 100 Mg PO DAILY Mexiletine Hcl 200 Mg Capsule 200 Mg PO TID Ranitidine Hcl 150 Mg Tablet 150 Mg PO BID Carvedilol (Carvedilol) 6.25 Mg Tablet 6.25 Mg PO BIDWMEALS Exemestane 25 Mg Tablet 25 Mg PO DAILY Potassium Chloride 10 Meq Tab.sr.24h 10 Meq PO BID66 Spironolactone 50 Mg Tablet 50 Mg PO DAILY Furosemide 20 Mg Tablet 20 Mg PO BID Vitamin C (Ascorbic Acid) 500 Mg Capsule 500 Mg PO DAILY Savaysa (Edoxaban Tosylate) 60 Mg Tablet 60 Mg PO DAILY Lisinopril 2.5 Mg Tablet 2.5 Mg PO DAILY Calcium Carbonate 600 Mg Tablet 600 Mg PO BID Ferrous Sulfate 325 Mg Tablet 325 Mg PO DAILY Vital Signs Vital Signs Date Time Temp Pulse Resp B/P (MAP) Pulse Ox O2 Delivery O2 Flow Rate FiO2 10/20/18 11:00 98.1 90 16 110/67 (81) 100 Room Air 98.1 Labs Laboratory Tests Test 10/19/18 04:33 10/20/18 03:35 White Blood Count 3.6 x10^3/uL (4.0-11.0) Red Blood Count 3.44 x10^6/uL (3.50-5.40) Hemoglobin 11.6 g/dL (12.0-15.5) Hematocrit 33.7 % (36.0-47.0) Mean Corpuscular Volume 98 fL (79-100) Mean Corpuscular Hemoglobin 34 pg (25-35) Mean Corpuscular Hemoglobin Concent 34 g/dL (31-37) Red Cell Distribution Width 13.0 % (11.5-14.5) Platelet Count 206 x10^3/uL (140-400) Neutrophils (%) (Auto) 46 % (31-73) Lymphocytes (%) (Auto) 35 % (24-48) Monocytes (%) (Auto) 16 % (0-9) Eosinophils (%) (Auto) 3 % (0-3) Basophils (%) (Auto) 1 % (0-3) Neutrophils # (Auto) 1.7 x10^3uL (1.8-7.7) Lymphocytes # (Auto) 1.2 x10^3/uL (1.0-4.8) Monocytes # (Auto) 0.6 x10^3/uL (0.0-1.1) Eosinophils # (Auto) 0.1 x10^3/uL (0.0-0.7) Basophils # (Auto) 0.0 x10^3/uL (0.0-0.2) Sodium Level 135 mmol/L (136-145) 138 mmol/L (136-145) Potassium Level 4.4 mmol/L (3.5-5.1) 3.9 mmol/L (3.5-5.1) Chloride Level 101 mmol/L (98-107) 103 mmol/L (98-107) Carbon Dioxide Level 24 mmol/L (21-32) 23 mmol/L (21-32) Anion Gap 10 (6-14) 12 (6-14) Blood Urea Nitrogen 18 mg/dL (7-20) 16 mg/dL (7-20) Creatinine 1.0 mg/dL (0.6-1.0) 1.0 mg/dL (0.6-1.0) Estimated GFR (Cockcroft-Gault) 69.9 69.9 Glucose Level 99 mg/dL (70-99) 98 mg/dL (70-99) Calcium Level 9.4 mg/dL (8.5-10.1) 9.2 mg/dL (8.5-10.1) Troponin I Quantitative 0.037 ng/mL (0.000-0.055) Triglycerides Level 19 mg/dL (0-150) Cholesterol Level 109 mg/dL (0-200) LDL Cholesterol, Calculated 65 mg/dL (0-100) VLDL Cholesterol, Calculated 4 mg/dL (0-40) Non-HDL Cholesterol Calculated 69 mg/dL (0-129) HDL Cholesterol 40 mg/dL (40-60) Cholesterol/HDL Ratio 2.7 BUN/Creatinine Ratio 16 (6-20) Total Bilirubin 0.4 mg/dL (0.2-1.0) Aspartate Amino Transf (AST/SGOT) 21 U/L (15-37) Alanine Aminotransferase (ALT/SGPT) 39 U/L (14-59) Alkaline Phosphatase 124 U/L (46-116) Total Protein 7.5 g/dL (6.4-8.2) Albumin 3.7 g/dL (3.4-5.0) Albumin/Globulin Ratio 1.0 (1.0-1.7) Laboratory Tests Test 10/20/18 03:35 Sodium Level 138 mmol/L (136-145) Potassium Level 3.9 mmol/L (3.5-5.1) Chloride Level 103 mmol/L (98-107) Carbon Dioxide Level 23 mmol/L (21-32) Anion Gap 12 (6-14) Blood Urea Nitrogen 16 mg/dL (7-20) Creatinine 1.0 mg/dL (0.6-1.0) Estimated GFR (Cockcroft-Gault) 69.9 BUN/Creatinine Ratio 16 (6-20) Glucose Level 98 mg/dL (70-99) Calcium Level 9.2 mg/dL (8.5-10.1) Total Bilirubin 0.4 mg/dL (0.2-1.0) Aspartate Amino Transf (AST/SGOT) 21 U/L (15-37) Alanine Aminotransferase (ALT/SGPT) 39 U/L (14-59) Alkaline Phosphatase 124 U/L (46-116) Total Protein 7.5 g/dL (6.4-8.2) Albumin 3.7 g/dL (3.4-5.0) Albumin/Globulin Ratio 1.0 (1.0-1.7) Allergies Allergies Coded Allergies Type Severity Reaction Last Updated Verified prochlorperazine Allergy Intermediate 12/02/16 Yes Disposition/Orders: D/C to Home Patient Instructions D/C PLANNING 34 MIN RIAZ BAH MD October 20, 2018 14:15
--- NOTE | 2018-10-20 14:17 | DISCH ---
DISCHARGE INSTRUCTIONS Condition on Discharge Condition on Discharge: Stable Activity After Discharge Activity Instructions for Disc: Activity as tolerated Lifting Instructions after Dis: No heavy lifting, No pulling or pushing Driving Instructions after Dis: Do not drive Diet after Discharge Diet after Discharge: Cardiac Contacting the DR. after DC Call your doctor for: If your condition worsens RIAZ BAH MD October 20, 2018 14:17
[2018-10-20 15:00] VITALS: BP 106/67
--- NOTE | 2018-10-20 16:35 | NUR ---
Discharge Note: FREDERICK NICOLE Discharge instructions and discharge home medications reviewed with Patient and a copy given. All questions have been answered and understanding verbalized. The following instructions and handouts were given: Cardiac diet, low salt and fluid restriction, gastric acid reflux, and chest pain. Discontinued iv lines and catheter intact. Patient discharged to home with family (son) via private [facility].
== END 2018-10-20 16:30 | disposition home or self-care (01) | DRG 293 ==
LOC: ER 01:35 → 2 SOUTH 06:03 → OBSVTOIN 10-19 15:51
PROVIDERS: ADMIT Internal Medicine; ATTEND Internal Medicine
DX: I11.0 Hypertensive heart disease with heart failure (principal); R07.89 Other chest pain; I50.23 Acute on chronic systolic (congestive) heart failure; I42.9 Cardiomyopathy, unspecified; C50.919 Malignant neoplasm of unspecified site of unspecified female breast; D72.819 Decreased white blood cell count, unspecified; I25.10 Atherosclerotic heart disease of native coronary artery without angina pectoris; I25.2 Old myocardial infarction; I48.2 Chronic atrial fibrillation; K59.00 Constipation, unspecified; Z82.49 Family history of ischemic heart disease and other diseases of the circulatory system; Z85.3 Personal history of malignant neoplasm of breast; Z86.718 Personal history of other venous thrombosis and embolism; Z87.440 Personal history of urinary (tract) infections; Z87.891 Personal history of nicotine dependence; Z95.5 Presence of coronary angioplasty implant and graft; Z95.810 Presence of automatic (implantable) cardiac defibrillator; Z95.828 Presence of other vascular implants and grafts
CPT/HCPCS: 36415; 71045; 74177; 80048; 80053; 80061; 83690; 83735; 83880; 84484; 85025; 85610; 93005; 93306; G0378; G0379; Q9967; 99285-25